=== PATIENT | female | born 1950 | race Caucasian/White ===

== ENCOUNTER → 2019-06-28 | Outpatient (CLI) | payer OTHER, MEDICARE ==
[~2019-06-28] MED LIST: ACET325 PO; ASPI81EC PO; ATOM40; CYAN100 PO; CYCL10 PO; DETROL; DIAZ5 PO; DILT180ER; DILT240 PO; Ex-Lax15 MG PO; FEXPSEER; FLUSAL2505 INH; FOLI400 PO; Flonase 0.05% N16 GM; GABA600 PO; HYDACE5; HYDACE7.5 PO; HYDMOR2 PO; IBUP800; LANS30EC; LANS30EC PO; LISI10; LISI5 PO; LORPSEER12 PO; LORPSEER24; LOVA20; LOVA40; METTREX2.5 PO; MONT10T; Milk Of Ma400 MG/5 M PO; OXYACE10 PO; OXYC10TA19 PO; POTCHL10ER PO; PROM25S PR; ROSU10TA PO; RXPROM25S PR; SPIR25 PO; TOLT4; TORSE20 PO; TRAV.004OP BOTHEYES; WARF5; WARF5 PO; WARF7.5; ZOLM5 PO; [UNRECOGNIZED DRUG - REMARK]; [UNRECOGNIZED DRUG - REMARK]
== END | disposition home or self-care (01) ==
LOC: LAB SHORT 10:31 → PLD 10:31
DX: L30.9 Dermatitis, unspecified (principal)
CPT/HCPCS: 88305; 88312; 88313

== ENCOUNTER 2021-12-10 15:33 | Emergency (ER) | payer MEDICARE ==
[~2021-12-10] VITALS: Ht 154.9 cm; Wt 71.7 kg
[2021-12-10 17:06] LABS: BASOPHILS ABSOLUTE AUTO 0.09 K/mm3 (0.00-0.23); BASOPHILS PERCENT AUTO 1 % (0-2); EOSINOPHILS ABSOLUTE AUTO 0.29 K/mm3 (0.00-0.68); EOSINOPHILS PERCENT AUTO 3 % (0-6); Hemoglobin 11.6 g/dL (11.5-16.0); IMMATURE GRAN ABSOLUTE AUTO 0.03 K/mm3 (0.00-0.10); IMMATURE GRAN PERCENT AUTO 0 % (0-1); LYMPHOCYTES ABSOLUTE AUTO 1.61 K/mm3 (0.84-5.20); LYMPHOCYTES PERCENT AUTO 17 % (21-46); MONOCYTES ABSOLUTE AUTO 0.87 K/mm3 (0.16-1.47); MONOCYTES PERCENT AUTO 9 % (4-13); Mean Corpuscular HGB 34.1 pg (26.0-34.0); Mean Corpuscular HGB Conc 32.2 g/dL (31.5-36.5); Mean Corpuscular Volume 106 fL (80-100); Mean Platelet Volume 9.7 fL (9.1-12.4); NEUTROPHILS PERCENT AUTO 70 % (41-73); Platelet Count 286 K/mm3 (150-400); RDW Coefficient Variation 15.9 % (11.7-14.2); RDW Standard Deviation 61.8 fL (35.1-46.3); White Blood Cell Count 9.49 K/mm3 (4.00-11.30)
[2021-12-10 17:36] LABS: Albumin, Blood 3.5 g/dL (3.4-5.0); Albumin/Globulin Ratio 1.2 (0.8-1.8); Bilirubin, Total 0.4 mg/dL (0.1-1.0); Bun/Creatinine Ratio 16.1 (12.0-20.0); Calcium, Blood 8.7 mg/dL (8.5-10.1); Creatinine, Blood 0.93 mg/dL (0.40-1.00); Globulin, Blood 2.8 g/dL (2.2-4.0); Potassium, Blood 4.2 mmol/L (3.5-5.5); Total Protein, Blood 6.3 g/dL (6.4-8.2)
[2021-12-10] MEDS ORDERED: Vibramycin100 MG PO (19:33)
== END 2021-12-10 19:51 | disposition home or self-care (01) ==
LOC: ER 15:33
PROVIDERS: Physician Assistant
DX: L03.221 Cellulitis of neck (principal); I10 Essential (primary) hypertension; F17.200 Nicotine dependence, unspecified, uncomplicated; G47.33 Obstructive sleep apnea (adult) (pediatric); M79.7 Fibromyalgia; Z85.3 Personal history of malignant neoplasm of breast; Z88.2 Allergy status to sulfonamides; Z91.048 Other nonmedicinal substance allergy status; Z91.041 Radiographic dye allergy status; Z88.8 Allergy status to other drugs, medicaments and biological substances; Z79.899 Other long term (current) drug therapy; Z79.01 Long term (current) use of anticoagulants
CPT/HCPCS: 36415; 70491; 80053; 85025; A9270; Q9967

== ENCOUNTER → 2021-12-20 | Outpatient (CLI) | payer MEDICARE ==
[~2021-12-20] MED LIST changes: +Vibramycin100 MG PO
== END | disposition home or self-care (01) ==
LOC: LAB SHORT 12:00
DX: L02.11 Cutaneous abscess of neck (principal)
CPT/HCPCS: 87070; 87075; 87205

== ENCOUNTER → 2022-03-23 | Outpatient (CLI) | payer MEDICARE ==
[2022-03-23 17:18] LABS: BASOPHILS ABSOLUTE AUTO 0.09 K/mm3 (0.00-0.23); BASOPHILS PERCENT AUTO 2 % (0-2); EOSINOPHILS ABSOLUTE AUTO 0.23 K/mm3 (0.00-0.68); EOSINOPHILS PERCENT AUTO 4 % (0-6); Hematocrit 31.9 % (33.0-51.0); Hemoglobin 9.6 g/dL (11.5-16.0); IMMATURE GRAN ABSOLUTE AUTO 0.02 K/mm3 (0.00-0.10); IMMATURE GRAN PERCENT AUTO 0 % (0-1); LYMPHOCYTES ABSOLUTE AUTO 1.13 K/mm3 (0.84-5.20); LYMPHOCYTES PERCENT AUTO 18 % (21-46); MONOCYTES ABSOLUTE AUTO 0.56 K/mm3 (0.16-1.47); MONOCYTES PERCENT AUTO 9 % (4-13); Mean Corpuscular HGB Conc 30.1 g/dL (31.5-36.5); Mean Corpuscular Volume 90 fL (80-100); Mean Platelet Volume 10.2 fL (9.1-12.4); NEUTROPHILS ABSOLUTE AUTO 4.13 K/mm3 (1.96-9.15); NEUTROPHILS PERCENT AUTO 67 % (41-73); NRBC ABSOLUTE 0.02 K/mm3 (0.00-0.02); NRBC Auto 0.3 /100 WBC (0.0-0.2); Platelet Count 343 K/mm3 (150-400); RDW Standard Deviation 62.2 fL (35.1-46.3); Red Blood Cell Count 3.55 M/mm3 (3.80-5.20); White Blood Cell Count 6.16 K/mm3 (4.00-11.30)
[2022-03-23 17:27] LABS: Alanine Aminotransfer (ALT/SGP 39 U/L (12-78); Albumin, Blood 3.7 g/dL (3.4-5.0); Albumin/Globulin Ratio 1.3 (0.8-1.8); Alk Phos 80 U/L (40-126); Anion Gap 8 mmol/L (6-16); Aspartate Aminotrans (AST/SGOT 18 U/L (12-37); Bilirubin, Total 0.3 mg/dL (0.1-1.0); Blood Urea Nitrogen 13 mg/dL (8-24); Bun/Creatinine Ratio 14.6 (12.0-20.0); CO2, Blood 24 mmol/L (21-32); Calcium, Blood 8.8 mg/dL (8.5-10.1); Chloride, Blood 107 mmol/L (98-108); Creatinine, Blood 0.89 mg/dL (0.40-1.00); Globulin, Blood 2.9 g/dL (2.2-4.0); Glomerular Filtration Rate >60 (60-); Glucose, Blood 114 mg/dL (70-99); Potassium, Blood 4.6 mmol/L (3.5-5.5); Sodium, Blood 139 mmol/L (136-145); Total Protein, Blood 6.6 g/dL (6.4-8.2)
[2022-03-26 12:11] LABS: A/G RATIO 1.2 (0.7-1.7); ALBUMIN 3.4 g/dL (2.9-4.4); ALPHA-1-GLOBULIN 0.3 g/dL (0.0-0.4); ALPHA-2-GLOBULIN 0.8 g/dL (0.4-1.0); GAMMA GLOBULIN 0.7 g/dL (0.4-1.8); GLOBULIN, TOTAL 2.8 g/dL (2.2-3.9); M-SPIKE Not Observed g/dL (Not Observed); PROTEIN, TOTAL, SERUM 6.2 g/dL (6.0-8.5)
== END ==
LOC: LAB 17:11 → LAB SHORT 17:11
PROVIDERS: Physician Assistant Medical
DX: M54.50 Low back pain, unspecified (principal)
CPT/HCPCS: 80053; 84165; 85025; 85651

== ENCOUNTER → 2022-05-08 | Outpatient (CLI) | payer MEDICARE ==
[2022-05-08 15:34] LABS: BASOPHILS ABSOLUTE AUTO 0.05 K/mm3 (0.00-0.23); BASOPHILS PERCENT AUTO 1 % (0-2); EOSINOPHILS PERCENT AUTO 0 % (0-6); Hematocrit 32.9 % (33.0-51.0); Hemoglobin 10.3 g/dL (11.5-16.0); IMMATURE GRAN ABSOLUTE AUTO 0.04 K/mm3 (0.00-0.10); IMMATURE GRAN PERCENT AUTO 0 % (0-1); LYMPHOCYTES ABSOLUTE AUTO 0.53 K/mm3 (0.84-5.20); LYMPHOCYTES PERCENT AUTO 6 % (21-46); MONOCYTES ABSOLUTE AUTO 0.87 K/mm3 (0.16-1.47); MONOCYTES PERCENT AUTO 9 % (4-13); Mean Corpuscular HGB 25.3 pg (26.0-34.0); Mean Corpuscular HGB Conc 31.3 g/dL (31.5-36.5); Mean Corpuscular Volume 81 fL (80-100); Mean Platelet Volume 9.9 fL (9.1-12.4); NEUTROPHILS PERCENT AUTO 84 % (41-73); Platelet Count 283 K/mm3 (150-400); RDW Coefficient Variation 19.6 % (11.7-14.2); RDW Standard Deviation 57.2 fL (35.1-46.3); Red Blood Cell Count 4.07 M/mm3 (3.80-5.20); White Blood Cell Count 9.49 K/mm3 (4.00-11.30)
== END | disposition home or self-care (01) ==
LOC: LAB SHORT 15:31
PROVIDERS: Physician Assistant
DX: R53.83 Other fatigue (principal)
CPT/HCPCS: 85025

== ENCOUNTER → 2022-05-15 | Outpatient (CLI) | payer MEDICARE ==
[2022-05-15 10:26] LABS: BASOPHILS ABSOLUTE AUTO 0.08 K/mm3 (0.00-0.23); BASOPHILS PERCENT AUTO 1 % (0-2); EOSINOPHILS ABSOLUTE AUTO 0.06 K/mm3 (0.00-0.68); EOSINOPHILS PERCENT AUTO 1 % (0-6); Hematocrit 32.5 % (33.0-51.0); IMMATURE GRAN ABSOLUTE AUTO 0.03 K/mm3 (0.00-0.10); IMMATURE GRAN PERCENT AUTO 0 % (0-1); LYMPHOCYTES ABSOLUTE AUTO 1.01 K/mm3 (0.84-5.20); LYMPHOCYTES PERCENT AUTO 11 % (21-46); MONOCYTES PERCENT AUTO 9 % (4-13); Mean Corpuscular HGB 24.9 pg (26.0-34.0); Mean Corpuscular HGB Conc 30.8 g/dL (31.5-36.5); Mean Corpuscular Volume 81 fL (80-100); Mean Platelet Volume 9.8 fL (9.1-12.4); NEUTROPHILS ABSOLUTE AUTO 7.54 K/mm3 (1.96-9.15); NEUTROPHILS PERCENT AUTO 78 % (41-73); Platelet Count 462 K/mm3 (150-400); RDW Standard Deviation 58.2 fL (35.1-46.3); Red Blood Cell Count 4.02 M/mm3 (3.80-5.20); White Blood Cell Count 9.62 K/mm3 (4.00-11.30)
[2022-05-15 10:40] LABS: Albumin, Blood 2.9 g/dL (3.4-5.0); Albumin/Globulin Ratio 0.6 (0.8-1.8); Bilirubin, Total 0.3 mg/dL (0.1-1.0); Bun/Creatinine Ratio 8.9 (12.0-20.0); Calcium, Blood 9.3 mg/dL (8.5-10.1); Creatinine, Blood 1.12 mg/dL (0.40-1.00); Globulin, Blood 4.6 g/dL (2.2-4.0); Potassium, Blood 2.6 mmol/L (3.5-5.5); Total Protein, Blood 7.5 g/dL (6.4-8.2)
== END | disposition home or self-care (01) ==
LOC: LAB 10:23 → LAB SHORT 10:23
PROVIDERS: Family Medicine
DX: R00.0 Tachycardia, unspecified (principal)
CPT/HCPCS: 80053; 85025

== ENCOUNTER 2022-05-17 19:47 | Inpatient (IN) | payer MEDICARE ==
[~2022-05-17] VITALS: Ht 154.9 cm; Wt 58.5 kg
[2022-05-17 20:37] LABS: BASOPHILS ABSOLUTE AUTO 0.05 K/mm3 (0.00-0.23); BASOPHILS PERCENT AUTO 0 % (0-2); EOSINOPHILS ABSOLUTE AUTO 0.02 K/mm3 (0.00-0.68); EOSINOPHILS PERCENT AUTO 0 % (0-6); Hematocrit 33.5 % (33.0-51.0); Hemoglobin 10.6 g/dL (11.5-16.0); IMMATURE GRAN ABSOLUTE AUTO 0.05 K/mm3 (0.00-0.10); IMMATURE GRAN PERCENT AUTO 0 % (0-1); LYMPHOCYTES ABSOLUTE AUTO 0.98 K/mm3 (0.84-5.20); LYMPHOCYTES PERCENT AUTO 7 % (21-46); MONOCYTES ABSOLUTE AUTO 1.18 K/mm3 (0.16-1.47); MONOCYTES PERCENT AUTO 8 % (4-13); Mean Corpuscular HGB 24.9 pg (26.0-34.0); Mean Corpuscular HGB Conc 31.6 g/dL (31.5-36.5); Mean Corpuscular Volume 79 fL (80-100); Mean Platelet Volume 10.1 fL (9.1-12.4); NEUTROPHILS ABSOLUTE AUTO 12.64 K/mm3 (1.96-9.15); NEUTROPHILS PERCENT AUTO 85 % (41-73); Platelet Count 563 K/mm3 (150-400); RDW Coefficient Variation 19.9 % (11.7-14.2); RDW Standard Deviation 56.1 fL (35.1-46.3); Red Blood Cell Count 4.25 M/mm3 (3.80-5.20); White Blood Cell Count 14.92 K/mm3 (4.00-11.30)
[2022-05-17 20:57] LABS: Albumin, Blood 2.8 g/dL (3.4-5.0); Albumin/Globulin Ratio 0.6 (0.8-1.8); Bilirubin, Total 0.4 mg/dL (0.1-1.0); Bun/Creatinine Ratio 10.1 (12.0-20.0); Calcium, Blood 9.3 mg/dL (8.5-10.1); Creatinine, Blood 0.7 mg/dL (0.40-1.00); Potassium, Blood 2.6 mmol/L (3.5-5.5); Total Protein, Blood 7.8 g/dL (6.4-8.2)
[2022-05-17 21:03] LABS: Prothrombin Time Results 57.9 Sec (9.7-11.5)
[2022-05-17 21:07] LABS: International Normalized Ratio 6.21
[2022-05-23] MEDS ORDERED: PERIDEX15 ML MM (10:39)
[2022-05-23] MEDS ORDERED: ERTAPENEM1 G6 IV (10:40)
[2022-05-23] MEDS ORDERED: FERGON225 MG PO (10:41)
== END 2022-05-18 07:15 | disposition short-term general hospital (02) | DRG 872 ==
LOC: ER 19:47 → ERHOLD 05-18 01:23
PROVIDERS: Physician Assistant; ADMIT Internal Medicine
DX: A41.9 Sepsis, unspecified organism (principal); K12.2 Cellulitis and abscess of mouth; I10 Essential (primary) hypertension; E87.6 Hypokalemia; Z79.899 Other long term (current) drug therapy; Z88.2 Allergy status to sulfonamides; Z88.8 Allergy status to other drugs, medicaments and biological substances; Z79.01 Long term (current) use of anticoagulants; M79.7 Fibromyalgia; G47.33 Obstructive sleep apnea (adult) (pediatric); Z86.718 Personal history of other venous thrombosis and embolism; Z90.49 Acquired absence of other specified parts of digestive tract; Z98.890 Other specified postprocedural states; Z90.710 Acquired absence of both cervix and uterus; R79.89 Other specified abnormal findings of blood chemistry; F17.200 Nicotine dependence, unspecified, uncomplicated
CPT/HCPCS: 36415; 70490; 70491; 80053; 83605; 85025; 85610; 86900; 86901; 87040; 93005; 93010; 96374; 99285-25; J0295; J1885; J2930; J3430; J3480; J7030; P9059; Q9967

== ENCOUNTER 2022-05-24 00:21 | Day surgery (SDC) | payer MEDICARE ==
[~2022-05-24 00:21] MED LIST changes: +ERTAPENEM1 G6 IV; +FERGON225 MG PO; +PERIDEX15 ML MM
== END 2022-05-24 10:15 | disposition home or self-care (01) ==
LOC: ATC 00:21
DX: M27.2 Inflammatory conditions of jaws (principal)
CPT/HCPCS: J1335

== ENCOUNTER 2022-05-25 09:21 | Day surgery (SDC) | payer MEDICARE | END 2022-05-25 10:40 | disposition home or self-care (01) | LOC: ATC 09:21 | DX: M27.2 Inflammatory conditions of jaws (principal); J44.9 Chronic obstructive pulmonary disease, unspecified; I10 Essential (primary) hypertension; G47.33 Obstructive sleep apnea (adult) (pediatric); J45.40 Moderate persistent asthma, uncomplicated; E78.5 Hyperlipidemia, unspecified; F41.9 Anxiety disorder, unspecified | CPT/HCPCS: 96365; J1335 ==

== ENCOUNTER 2022-05-27 02:20 | Day surgery (SDC) | payer MEDICARE | END 2022-05-27 09:54 | disposition home or self-care (01) | LOC: ATC 02:20 | DX: M27.2 Inflammatory conditions of jaws (principal); I10 Essential (primary) hypertension; J44.9 Chronic obstructive pulmonary disease, unspecified; J45.40 Moderate persistent asthma, uncomplicated; E11.9 Type 2 diabetes mellitus without complications | CPT/HCPCS: J1335 ==

== ENCOUNTER 2022-05-28 04:55 | Day surgery (SDC) | payer MEDICARE | END 2022-05-28 09:40 | disposition home or self-care (01) | LOC: ATC 04:55 | DX: M27.2 Inflammatory conditions of jaws (principal); I10 Essential (primary) hypertension; J44.9 Chronic obstructive pulmonary disease, unspecified; J45.40 Moderate persistent asthma, uncomplicated; E11.9 Type 2 diabetes mellitus without complications; G47.33 Obstructive sleep apnea (adult) (pediatric) | CPT/HCPCS: J1335 ==

== ENCOUNTER 2022-05-29 01:26 | Day surgery (SDC) | payer MEDICARE | END 2022-05-29 10:06 | disposition home or self-care (01) | LOC: ATC 01:26 | DX: M27.2 Inflammatory conditions of jaws (principal); I10 Essential (primary) hypertension; J44.9 Chronic obstructive pulmonary disease, unspecified; J45.40 Moderate persistent asthma, uncomplicated; G47.33 Obstructive sleep apnea (adult) (pediatric); F17.200 Nicotine dependence, unspecified, uncomplicated; E78.5 Hyperlipidemia, unspecified | CPT/HCPCS: 96365; J1335 ==

== ENCOUNTER 2022-05-30 00:13 | Day surgery (SDC) | payer MEDICARE ==
[2022-05-30 10:04] LABS: BASOPHILS ABSOLUTE AUTO 0.05 K/mm3 (0.00-0.23); BASOPHILS PERCENT AUTO 1 % (0-2); EOSINOPHILS ABSOLUTE AUTO 0.23 K/mm3 (0.00-0.68); EOSINOPHILS PERCENT AUTO 5 % (0-6); Hematocrit 29.3 % (33.0-51.0); Hemoglobin 8.8 g/dL (11.5-16.0); IMMATURE GRAN ABSOLUTE AUTO 0.02 K/mm3 (0.00-0.10); IMMATURE GRAN PERCENT AUTO 0 % (0-1); LYMPHOCYTES ABSOLUTE AUTO 0.98 K/mm3 (0.84-5.20); LYMPHOCYTES PERCENT AUTO 20 % (21-46); MONOCYTES PERCENT AUTO 10 % (4-13); Mean Corpuscular HGB 25.1 pg (26.0-34.0); Mean Corpuscular Volume 84 fL (80-100); Mean Platelet Volume 9.9 fL (9.1-12.4); NEUTROPHILS ABSOLUTE AUTO 3.04 K/mm3 (1.96-9.15); NEUTROPHILS PERCENT AUTO 63 % (41-73); Platelet Count 255 K/mm3 (150-400); RDW Coefficient Variation 20.8 % (11.7-14.2); RDW Standard Deviation 63.3 fL (35.1-46.3); White Blood Cell Count 4.82 K/mm3 (4.00-11.30)
[2022-05-30 10:20] LABS: Albumin, Blood 2.7 g/dL (3.4-5.0); Albumin/Globulin Ratio 0.8 (0.8-1.8); Bilirubin, Total 0.2 mg/dL (0.1-1.0); Bun/Creatinine Ratio 12.2 (12.0-20.0); Calcium, Blood 8.7 mg/dL (8.5-10.1); Creatinine, Blood 0.66 mg/dL (0.40-1.00); Globulin, Blood 3.5 g/dL (2.2-4.0); Potassium, Blood 4.1 mmol/L (3.5-5.5); Total Protein, Blood 6.2 g/dL (6.4-8.2)
== END 2022-05-30 10:09 | disposition home or self-care (01) ==
LOC: ATC 00:13
DX: M27.2 Inflammatory conditions of jaws (principal); G47.33 Obstructive sleep apnea (adult) (pediatric); J45.40 Moderate persistent asthma, uncomplicated; J44.9 Chronic obstructive pulmonary disease, unspecified; I10 Essential (primary) hypertension; E78.5 Hyperlipidemia, unspecified
CPT/HCPCS: 80053; 85025; 85651; 86140; 96365; J1335

== ENCOUNTER 2022-06-01 09:16 | Day surgery (SDC) | payer MEDICARE | END 2022-06-01 09:44 | disposition home or self-care (01) | LOC: ATC 09:16 | DX: M27.2 Inflammatory conditions of jaws (principal) | CPT/HCPCS: 96365; J1335 ==

== ENCOUNTER 2022-06-02 09:14 | Day surgery (SDC) | payer MEDICARE | END 2022-06-02 09:47 | disposition home or self-care (01) | LOC: ATC 09:14 | DX: E11.69 Type 2 diabetes mellitus with other specified complication (principal); M27.2 Inflammatory conditions of jaws; G47.33 Obstructive sleep apnea (adult) (pediatric); I10 Essential (primary) hypertension; J44.9 Chronic obstructive pulmonary disease, unspecified; J45.40 Moderate persistent asthma, uncomplicated; F11.20 Opioid dependence, uncomplicated; E78.5 Hyperlipidemia, unspecified | CPT/HCPCS: 96374; J1335 ==

== ENCOUNTER 2022-06-03 09:11 | Day surgery (SDC) | payer MEDICARE | END 2022-06-03 09:37 | disposition home or self-care (01) | LOC: ATC 09:11 | DX: E11.69 Type 2 diabetes mellitus with other specified complication (principal); M27.2 Inflammatory conditions of jaws; G47.33 Obstructive sleep apnea (adult) (pediatric); I10 Essential (primary) hypertension; J44.9 Chronic obstructive pulmonary disease, unspecified; J45.40 Moderate persistent asthma, uncomplicated; F11.20 Opioid dependence, uncomplicated; E78.5 Hyperlipidemia, unspecified | CPT/HCPCS: 96374; J1335 ==

== ENCOUNTER 2022-06-05 10:38 | Day surgery (SDC) | payer MEDICARE | END 2022-06-05 11:14 | disposition home or self-care (01) | LOC: ATC 10:38 | DX: M27.2 Inflammatory conditions of jaws (principal); I10 Essential (primary) hypertension; J44.9 Chronic obstructive pulmonary disease, unspecified; G47.33 Obstructive sleep apnea (adult) (pediatric); J45.40 Moderate persistent asthma, uncomplicated; E78.5 Hyperlipidemia, unspecified | CPT/HCPCS: 96374; J1335 ==

== ENCOUNTER 2022-06-06 07:55 | Day surgery (SDC) | payer MEDICARE ==
[2022-06-06 10:47] LABS: BASOPHILS ABSOLUTE AUTO 0.05 K/mm3 (0.00-0.23); BASOPHILS PERCENT AUTO 1 % (0-2); EOSINOPHILS PERCENT AUTO 5 % (0-6); Hematocrit 29.6 % (33.0-51.0); Hemoglobin 8.7 g/dL (11.5-16.0); IMMATURE GRAN PERCENT AUTO 0 % (0-1); LYMPHOCYTES ABSOLUTE AUTO 1.32 K/mm3 (0.84-5.20); LYMPHOCYTES PERCENT AUTO 33 % (21-46); MONOCYTES ABSOLUTE AUTO 0.48 K/mm3 (0.16-1.47); MONOCYTES PERCENT AUTO 12 % (4-13); Mean Corpuscular HGB 25.1 pg (26.0-34.0); Mean Corpuscular HGB Conc 29.4 g/dL (31.5-36.5); Mean Corpuscular Volume 86 fL (80-100); Mean Platelet Volume 10.8 fL (9.1-12.4); NEUTROPHILS ABSOLUTE AUTO 1.94 K/mm3 (1.96-9.15); NEUTROPHILS PERCENT AUTO 49 % (41-73); Platelet Count 214 K/mm3 (150-400); RDW Coefficient Variation 20.7 % (11.7-14.2); RDW Standard Deviation 64.7 fL (35.1-46.3); Red Blood Cell Count 3.46 M/mm3 (3.80-5.20); White Blood Cell Count 3.99 K/mm3 (4.00-11.30)
[2022-06-06 11:21] LABS: C-REACTIVE PROTEIN, EXT RANGE <0.290 mg/dL (0.000-0.300)
[2022-06-06 11:24] LABS: Alanine Aminotransfer (ALT/SGP 19 U/L (12-78); Albumin, Blood 2.7 g/dL (3.4-5.0); Albumin/Globulin Ratio 0.7 (0.8-1.8); Alk Phos 86 U/L (50-136); Anion Gap 4 mmol/L (6-16); Aspartate Aminotrans (AST/SGOT 14 U/L (12-37); Bilirubin, Total 0.3 mg/dL (0.1-1.0); Blood Urea Nitrogen 6 mg/dL (8-24); Bun/Creatinine Ratio 9.9 (12.0-20.0); CO2, Blood 26 mmol/L (21-32); Calcium, Blood 8.8 mg/dL (8.5-10.1); Chloride, Blood 113 mmol/L (98-108); Creatinine, Blood 0.61 mg/dL (0.40-1.00); Globulin, Blood 3.7 g/dL (2.2-4.0); Glomerular Filtration Rate 97 (60-); Glucose, Blood 94 mg/dL (70-99); Potassium, Blood 3.9 mmol/L (3.5-5.5); Sodium, Blood 143 mmol/L (136-145); Total Protein, Blood 6.4 g/dL (6.4-8.2)
== END 2022-06-06 09:56 | disposition home or self-care (01) ==
LOC: ATC 07:55
PROVIDERS: Internal Medicine Infectious Disease
DX: M27.2 Inflammatory conditions of jaws (principal); I10 Essential (primary) hypertension; G47.33 Obstructive sleep apnea (adult) (pediatric); M79.7 Fibromyalgia; J45.40 Moderate persistent asthma, uncomplicated; D64.9 Anemia, unspecified
CPT/HCPCS: 80053; 85025; 85651; 86140; 96374; J1335

== ENCOUNTER 2022-06-07 00:57 | Day surgery (SDC) | payer MEDICARE | END 2022-06-07 09:42 | disposition home or self-care (01) | LOC: ATC 00:57 | DX: M27.2 Inflammatory conditions of jaws (principal) | CPT/HCPCS: J1335 ==

== ENCOUNTER 2022-06-08 10:27 | Day surgery (SDC) | payer MEDICARE | END 2022-06-08 10:51 | disposition home or self-care (01) | LOC: ATC 10:27 | DX: M27.2 Inflammatory conditions of jaws (principal) | CPT/HCPCS: 96365; J1335 ==

== ENCOUNTER 2022-06-09 09:59 | Day surgery (SDC) | payer MEDICARE | END 2022-06-09 10:24 | disposition home or self-care (01) | LOC: ATC 09:59 | DX: M27.2 Inflammatory conditions of jaws (principal) | CPT/HCPCS: 96365; J1335 ==

== ENCOUNTER 2022-06-10 00:25 | Day surgery (SDC) | payer MEDICARE | END 2022-06-10 09:50 | disposition home or self-care (01) | LOC: ATC 00:25 | DX: M27.2 Inflammatory conditions of jaws (principal); I10 Essential (primary) hypertension; D64.9 Anemia, unspecified; G47.33 Obstructive sleep apnea (adult) (pediatric); J45.40 Moderate persistent asthma, uncomplicated; E11.9 Type 2 diabetes mellitus without complications; J44.9 Chronic obstructive pulmonary disease, unspecified; F11.20 Opioid dependence, uncomplicated; E78.5 Hyperlipidemia, unspecified; Z79.01 Long term (current) use of anticoagulants | CPT/HCPCS: 96374; J1335 ==

== ENCOUNTER 2022-06-11 04:48 | Day surgery (SDC) | payer MEDICARE | END 2022-06-11 09:30 | disposition home or self-care (01) | LOC: ATC 04:48 | DX: M27.2 Inflammatory conditions of jaws (principal); I10 Essential (primary) hypertension; D64.9 Anemia, unspecified; J45.40 Moderate persistent asthma, uncomplicated; E11.9 Type 2 diabetes mellitus without complications; J44.9 Chronic obstructive pulmonary disease, unspecified; F11.20 Opioid dependence, uncomplicated; E78.5 Hyperlipidemia, unspecified; Z79.01 Long term (current) use of anticoagulants | CPT/HCPCS: 96365; J1335 ==

== ENCOUNTER 2022-06-12 03:38 | Day surgery (SDC) | payer MEDICARE | END 2022-06-12 09:40 | disposition home or self-care (01) | LOC: ATC 03:38 | DX: M27.2 Inflammatory conditions of jaws (principal) | CPT/HCPCS: 96365; J1335 ==

== ENCOUNTER 2022-06-13 00:54 | Day surgery (SDC) | payer MEDICARE ==
[2022-06-13 09:49] LABS: BASOPHILS ABSOLUTE AUTO 0.04 K/mm3 (0.00-0.23); BASOPHILS PERCENT AUTO 1 % (0-2); EOSINOPHILS ABSOLUTE AUTO 0.22 K/mm3 (0.00-0.68); EOSINOPHILS PERCENT AUTO 7 % (0-6); Hematocrit 28.4 % (33.0-51.0); Hemoglobin 8.5 g/dL (11.5-16.0); IMMATURE GRAN ABSOLUTE AUTO 0.01 K/mm3 (0.00-0.10); IMMATURE GRAN PERCENT AUTO 0 % (0-1); LYMPHOCYTES ABSOLUTE AUTO 1.02 K/mm3 (0.84-5.20); LYMPHOCYTES PERCENT AUTO 34 % (21-46); MONOCYTES ABSOLUTE AUTO 0.52 K/mm3 (0.16-1.47); MONOCYTES PERCENT AUTO 18 % (4-13); Mean Corpuscular HGB 25.1 pg (26.0-34.0); Mean Corpuscular HGB Conc 29.9 g/dL (31.5-36.5); Mean Corpuscular Volume 84 fL (80-100); Mean Platelet Volume 10.2 fL (9.1-12.4); NEUTROPHILS ABSOLUTE AUTO 1.16 K/mm3 (1.96-9.15); NEUTROPHILS PERCENT AUTO 39 % (41-73); Platelet Count 202 K/mm3 (150-400); RDW Standard Deviation 61.6 fL (35.1-46.3); Red Blood Cell Count 3.39 M/mm3 (3.80-5.20); White Blood Cell Count 2.97 K/mm3 (4.00-11.30)
[2022-06-13 10:14] LABS: Alanine Aminotransfer (ALT/SGP 13 U/L (12-78); Albumin, Blood 2.6 g/dL (3.4-5.0); Albumin/Globulin Ratio 0.8 (0.8-1.8); Alk Phos 90 U/L (50-136); Anion Gap 5 mmol/L (6-16); Aspartate Aminotrans (AST/SGOT 9 U/L (12-37); Bilirubin, Total 0.2 mg/dL (0.1-1.0); Blood Urea Nitrogen 9 mg/dL (8-24); Bun/Creatinine Ratio 13.6 (12.0-20.0); C-REACTIVE PROTEIN, EXT RANGE <0.290 mg/dL (0.000-0.300); CO2, Blood 26 mmol/L (21-32); Calcium, Blood 8.7 mg/dL (8.5-10.1); Chloride, Blood 111 mmol/L (98-108); Creatinine, Blood 0.66 mg/dL (0.40-1.00); Globulin, Blood 3.4 g/dL (2.2-4.0); Glomerular Filtration Rate 95 (60-); Glucose, Blood 94 mg/dL (70-99); Potassium, Blood 4.2 mmol/L (3.5-5.5); Sodium, Blood 142 mmol/L (136-145)
== END 2022-06-13 09:37 | disposition home or self-care (01) ==
LOC: ATC 00:54
PROVIDERS: Internal Medicine Infectious Disease
DX: M27.2 Inflammatory conditions of jaws (principal)
CPT/HCPCS: 80053; 85025; 85651; 86140; J1335

== ENCOUNTER 2022-06-14 02:50 | Day surgery (SDC) | payer MEDICARE | END 2022-06-14 09:19 | disposition home or self-care (01) | LOC: ATC 02:50 | DX: M27.2 Inflammatory conditions of jaws (principal); G47.33 Obstructive sleep apnea (adult) (pediatric); J45.40 Moderate persistent asthma, uncomplicated | CPT/HCPCS: 96365; J1335 ==

== ENCOUNTER 2022-06-15 03:57 | Day surgery (SDC) | payer MEDICARE | END 2022-06-15 09:34 | disposition home or self-care (01) | LOC: ATC 03:57 | DX: M27.2 Inflammatory conditions of jaws (principal); J44.9 Chronic obstructive pulmonary disease, unspecified; J45.40 Moderate persistent asthma, uncomplicated; G47.33 Obstructive sleep apnea (adult) (pediatric); D64.9 Anemia, unspecified | CPT/HCPCS: 96365; J1335 ==

== ENCOUNTER 2022-06-16 00:52 | Day surgery (SDC) | payer MEDICARE | END 2022-06-16 09:25 | disposition home or self-care (01) | LOC: ATC 00:52 | DX: M27.2 Inflammatory conditions of jaws (principal); J45.40 Moderate persistent asthma, uncomplicated; J44.9 Chronic obstructive pulmonary disease, unspecified; E11.9 Type 2 diabetes mellitus without complications; I10 Essential (primary) hypertension; F11.20 Opioid dependence, uncomplicated; E87.6 Hypokalemia; E78.5 Hyperlipidemia, unspecified | CPT/HCPCS: 96365; J1335 ==

== ENCOUNTER 2022-06-17 07:21 | Day surgery (SDC) | payer MEDICARE | END 2022-06-17 09:36 | disposition home or self-care (01) | LOC: ATC 07:21 | DX: M27.2 Inflammatory conditions of jaws (principal); I10 Essential (primary) hypertension; J44.9 Chronic obstructive pulmonary disease, unspecified; J45.40 Moderate persistent asthma, uncomplicated | CPT/HCPCS: 96365; J1335 ==

== ENCOUNTER 2022-06-19 02:26 | Day surgery (SDC) | payer MEDICARE | END 2022-06-19 09:26 | disposition home or self-care (01) | LOC: ATC 02:26 | DX: M27.2 Inflammatory conditions of jaws (principal) | CPT/HCPCS: 96365; J1335 ==

== ENCOUNTER 2022-06-22 08:50 | Day surgery (SDC) | payer MEDICARE | END 2022-06-22 09:15 | disposition home or self-care (01) | LOC: ATC 08:50 | DX: M27.2 Inflammatory conditions of jaws (principal) | CPT/HCPCS: 96374; J1335 ==

== ENCOUNTER 2022-06-23 08:51 | Day surgery (SDC) | payer MEDICARE | END 2022-06-23 09:21 | disposition home or self-care (01) | LOC: ATC 08:51 | DX: M27.2 Inflammatory conditions of jaws (principal) | CPT/HCPCS: 96365; J1335 ==

== ENCOUNTER 2022-06-24 05:53 | Day surgery (SDC) | payer MEDICARE | END 2022-06-24 09:23 | disposition home or self-care (01) | LOC: ATC 05:53 | DX: M27.2 Inflammatory conditions of jaws (principal) | CPT/HCPCS: 96365; J1335 ==

== ENCOUNTER 2022-06-25 02:48 | Day surgery (SDC) | payer MEDICARE | END 2022-06-25 09:12 | disposition home or self-care (01) | LOC: ATC 02:48 | DX: M27.2 Inflammatory conditions of jaws (principal) | CPT/HCPCS: 96365; J1335 ==

== ENCOUNTER 2022-06-27 01:51 | Day surgery (SDC) | payer MEDICARE | END 2022-06-27 09:42 | disposition home or self-care (01) | LOC: ATC 01:51 | DX: M27.2 Inflammatory conditions of jaws (principal) | CPT/HCPCS: 96365; J1335 ==

== ENCOUNTER 2022-06-28 01:08 | Day surgery (SDC) | payer MEDICARE | END 2022-06-28 09:27 | disposition home or self-care (01) | LOC: ATC 01:08 | DX: M27.2 Inflammatory conditions of jaws (principal) | CPT/HCPCS: 96374; J1335 ==

== ENCOUNTER 2022-06-29 08:55 | Day surgery (SDC) | payer MEDICARE | END 2022-06-29 09:45 | disposition home or self-care (01) | LOC: ATC 08:55 | DX: M27.2 Inflammatory conditions of jaws (principal); E11.9 Type 2 diabetes mellitus without complications; I10 Essential (primary) hypertension; M79.7 Fibromyalgia; J44.9 Chronic obstructive pulmonary disease, unspecified; G47.33 Obstructive sleep apnea (adult) (pediatric); J45.40 Moderate persistent asthma, uncomplicated; E87.6 Hypokalemia; E78.5 Hyperlipidemia, unspecified | CPT/HCPCS: 96374; J1335 ==

== ENCOUNTER 2022-06-30 04:06 | Day surgery (SDC) | payer MEDICARE | END 2022-06-30 09:48 | disposition home or self-care (01) | LOC: ATC 04:06 | DX: M27.2 Inflammatory conditions of jaws (principal); I10 Essential (primary) hypertension; J44.9 Chronic obstructive pulmonary disease, unspecified; M79.7 Fibromyalgia; G47.33 Obstructive sleep apnea (adult) (pediatric); J45.40 Moderate persistent asthma, uncomplicated; F11.90 Opioid use, unspecified, uncomplicated; E78.5 Hyperlipidemia, unspecified | CPT/HCPCS: 96365; J1335 ==

== ENCOUNTER 2022-07-01 01:47 | Day surgery (SDC) | payer MEDICARE | END 2022-07-01 09:58 | disposition home or self-care (01) | LOC: ATC 01:47 | DX: M27.2 Inflammatory conditions of jaws (principal); I10 Essential (primary) hypertension; J44.9 Chronic obstructive pulmonary disease, unspecified | CPT/HCPCS: 96365; J1335 ==

== ENCOUNTER 2022-11-07 10:34 | Inpatient (IN) | payer MEDICARE ==
[~2022-11-07] VITALS: Ht 154.9 cm; Wt 62.7 kg
[~2022-11-07 10:34] MED LIST changes: +FOLIC ACID0.4 MG PO
[2022-11-07 11:26] LABS: BASOPHILS ABSOLUTE AUTO 0.05 K/mm3 (0.00-0.23); BASOPHILS PERCENT AUTO 1 % (0-2); EOSINOPHILS ABSOLUTE AUTO 0.04 K/mm3 (0.00-0.68); EOSINOPHILS PERCENT AUTO 0 % (0-6); Hematocrit 19.9 % (33.0-51.0); IMMATURE GRAN ABSOLUTE AUTO 0.08 K/mm3 (0.00-0.10); IMMATURE GRAN PERCENT AUTO 1 % (0-1); LYMPHOCYTES ABSOLUTE AUTO 0.62 K/mm3 (0.84-5.20); LYMPHOCYTES PERCENT AUTO 7 % (21-46); MONOCYTES ABSOLUTE AUTO 0.71 K/mm3 (0.16-1.47); MONOCYTES PERCENT AUTO 8 % (4-13); Mean Corpuscular HGB 23.9 pg (26.0-34.0); Mean Corpuscular HGB Conc 29.6 g/dL (31.5-36.5); Mean Corpuscular Volume 81 fL (80-100); Mean Platelet Volume 10.3 fL (9.1-12.4); NEUTROPHILS PERCENT AUTO 84 % (41-73); NRBC ABSOLUTE 0.19 K/mm3 (0.00-0.02); Platelet Count 473 K/mm3 (150-400); RDW Coefficient Variation 21.1 % (11.7-14.2); RDW Standard Deviation 61.4 fL (35.1-46.3); Red Blood Cell Count 2.47 M/mm3 (3.80-5.20)
[2022-11-07 11:37] LABS: Hemoglobin 5.9 g/dL (11.5-16.0)
[2022-11-07 12:26] LABS: Influenza A, PCR NEGATIVE (NEGATIVE); Influenza B, PCR NEGATIVE (NEGATIVE); Resp Syncytial Virus, PCR NEGATIVE (NEGATIVE); SARS-Cov-2 (COVID-19) PCR, MMC NEGATIVE (NEGATIVE)
[2022-11-07 13:09] LABS: Albumin, Blood 2.8 g/dL (3.4-5.0); Albumin/Globulin Ratio 0.8 (0.8-1.8); Bilirubin, Total 0.4 mg/dL (0.1-1.0); Calcium, Blood 8.5 mg/dL (8.5-10.1); Globulin, Blood 3.7 g/dL (2.2-4.0); Potassium, Blood 4.1 mmol/L (3.5-5.5); Total Protein, Blood 6.5 g/dL (6.4-8.2)
[2022-11-07] MEDS ORDERED: Norco 5-325 Ta1 EACH PO (15:11)
--- NOTE | 2022-11-07 16:46 | NUR ---
ADMIT TO MEDICAL FLOOR: PT ARRIVED TO MEDICAL FLOOR AT 1615 [facility]IA [facility] BED. BLOOD PRODUCTS WERE FINISHING PT ARRIVED. WILL FLUSH IV ONCE IT IS DONE. TELE IN PLACE. PT CURRENTLY HAS SON IN ROOM. PT HAS CHRONIC BACK PAIN THAT SHE STATES IS MEDICATED WITH HYDROCODONE AND GABAPENTIN. I GAVE PT TYLENOL FOR BACK UNTIL THE DOCTOR CAN ASSESS HER. PT DENIES ANY NEEDS AT THIS TIME.
--- NOTE | 2022-11-07 17:42 | NUR ---
SHIFT SUMMARY: PT ARRIVED TO MEDICAL FLOOR COLD, PALE, AND IN CHRONIC PAIN WITH HER BACK. PT'S SON HAS BEEN WITH HER AND HAS HELPED TO ANSWER SOME QUESTIONS. PT GOT A DOSE OF 650 MG TYLENOL UPON ARRIVAL WHICH "HELPED A LITTLE." GOT AN ORDER TO PUT HER BACK ON HER HOME PAIN MEDICATION OF 10-325 NORCO. H&H WILL BE DRAWN AT 1900. TELE IN PLACE. IV PATENT AND FLUSHING. NO COMPLAINTS AT THIS TIME. CALL LIGHT IN REACH. BED IN LOWEST POSITION. WILL CONTINUE TO MONITOR.
[2022-11-07 19:06] LABS: Hematocrit 23.4 % (33.0-51.0); Hemoglobin 7.4 g/dL (11.5-16.0)
[2022-11-07 19:29] LABS: International Normalized Ratio 1.08; Prothrombin Time Results 11.3 Sec (9.7-11.5)
[2022-11-08 01:12] LABS: BASOPHILS ABSOLUTE AUTO 0.06 K/mm3 (0.00-0.23); BASOPHILS PERCENT AUTO 1 % (0-2); EOSINOPHILS ABSOLUTE AUTO 0.17 K/mm3 (0.00-0.68); EOSINOPHILS PERCENT AUTO 2 % (0-6); Hematocrit 23.9 % (33.0-51.0); Hemoglobin 7.5 g/dL (11.5-16.0); IMMATURE GRAN ABSOLUTE AUTO 0.08 K/mm3 (0.00-0.10); IMMATURE GRAN PERCENT AUTO 1 % (0-1); LYMPHOCYTES ABSOLUTE AUTO 0.85 K/mm3 (0.84-5.20); LYMPHOCYTES PERCENT AUTO 10 % (21-46); MONOCYTES ABSOLUTE AUTO 0.83 K/mm3 (0.16-1.47); MONOCYTES PERCENT AUTO 9 % (4-13); Mean Corpuscular HGB Conc 31.4 g/dL (31.5-36.5); Mean Corpuscular Volume 80 fL (80-100); Mean Platelet Volume 10.2 fL (9.1-12.4); NEUTROPHILS PERCENT AUTO 77 % (41-73); NRBC ABSOLUTE 0.14 K/mm3 (0.00-0.02); NRBC Auto 1.6 /100 WBC (0.0-0.2); Platelet Count 437 K/mm3 (150-400); RDW Coefficient Variation 19.1 % (11.7-14.2); RDW Standard Deviation 51.2 fL (35.1-46.3); White Blood Cell Count 8.79 K/mm3 (4.00-11.30)
[2022-11-08 01:39] LABS: Albumin, Blood 2.5 g/dL (3.4-5.0); Albumin/Globulin Ratio 0.7 (0.8-1.8); Bilirubin, Total 0.4 mg/dL (0.1-1.0); Bun/Creatinine Ratio 14.2 (12.0-20.0); Calcium, Blood 8.1 mg/dL (8.5-10.1); Creatinine, Blood 0.7 mg/dL (0.40-1.00); Globulin, Blood 3.8 g/dL (2.2-4.0); Potassium, Blood 3.6 mmol/L (3.5-5.5); Total Protein, Blood 6.3 g/dL (6.4-8.2)
--- NOTE | 2022-11-08 04:25 | NUR ---
SHIFT SUMMARY: PT IS ALERT AND ORIENTED. PT IS CALM AND COOPERATIVE WITH CARE. PT CALLS APPROPRIATELY. PT IS A STANDBY ASSIST WITH FWW. PT SLEPT MUCH OF THE NIGHT WHEN NOT DISTURBED. PT DENIES PAIN, NAUSEA, VOMITING, AND SOB. NO ACUTE CHANGES OR COMPLICATIONS OVERNIGHT. BED IN LOW POSITION, CALL LIGHT WITHIN REACH. WILL REPORT TO DAY NURSE.
[2022-11-08 07:19] LABS: Hematocrit 22.9 % (33.0-51.0); Hemoglobin 7.2 g/dL (11.5-16.0)
[2022-11-08 13:25] LABS: Hematocrit 22.4 % (33.0-51.0); Hemoglobin 7.2 g/dL (11.5-16.0)
--- NOTE | 2022-11-08 17:26 | NUR ---
SHIFT SUMMARY VSS. PT ON ROOM AIR. IV TO PT'S LEFT AC. TELE MONITORING PT AT NORMAL SINUS IN THE 80'S. PT IS STANDBY ASSIST TO BATHROOM. TAKES MEDS WHOLE WITH WATER. CHRONIC BACK PAIN. GI CONSULT WITH DR. HERNÁNDEZ, HE PLANS FOR AN EGD TOMORROW, IF POSSIBLE. PT IS TO BE NPO AFTER BREAKFAST ON SAT 12/10. PT LIVES WITH BROTHER, GENOVEVA, WHO IS HER PRIMARY CAREGIVER. GENOVEVA VISITED PT'S BEDSIDE. PT'S DAUGHTER KEY CALLED FOR A STATUS UPDATE AND SPOKE TO RN. PT C/O MIGRAINE AND RECEIVED ZIOMIG PRN. BED IN LOWEST POSITION, CALL LIGHT WITHIN REACH. RN WILL CONTINUE TO MONITOR.
--- NOTE | 2022-11-09 07:27 | NUR ---
A/OX2-3; CONFUSED AT TIMES, CALM AND COOPERATIVE. TELE: ST @ 105. CLEAR LIQUID BREAKFAST THEN NPO AFTER FOR EGD TODAY. NO ACUTE CHANGES OVERNIGHT CALL LIGHT IN REACH; ENCOURAGED TO MAKE NEEDS KNOWN. BED ALARM SET.
[2022-11-09 12:36] LABS: BASOPHILS ABSOLUTE AUTO 0.04 K/mm3 (0.00-0.23); BASOPHILS PERCENT AUTO 1 % (0-2); EOSINOPHILS ABSOLUTE AUTO 0.18 K/mm3 (0.00-0.68); EOSINOPHILS PERCENT AUTO 3 % (0-6); Hematocrit 22.5 % (33.0-51.0); IMMATURE GRAN ABSOLUTE AUTO 0.07 K/mm3 (0.00-0.10); IMMATURE GRAN PERCENT AUTO 1 % (0-1); LYMPHOCYTES ABSOLUTE AUTO 0.87 K/mm3 (0.84-5.20); LYMPHOCYTES PERCENT AUTO 17 % (21-46); MONOCYTES ABSOLUTE AUTO 0.67 K/mm3 (0.16-1.47); MONOCYTES PERCENT AUTO 13 % (4-13); Mean Corpuscular HGB Conc 31.1 g/dL (31.5-36.5); Mean Corpuscular Volume 80 fL (80-100); Mean Platelet Volume 9.6 fL (9.1-12.4); NEUTROPHILS ABSOLUTE AUTO 3.45 K/mm3 (1.96-9.15); NEUTROPHILS PERCENT AUTO 65 % (41-73); NRBC ABSOLUTE 0.06 K/mm3 (0.00-0.02); NRBC Auto 1.1 /100 WBC (0.0-0.2); Platelet Count 381 K/mm3 (150-400); RDW Coefficient Variation 19.7 % (11.7-14.2); RDW Standard Deviation 53.3 fL (35.1-46.3); White Blood Cell Count 5.28 K/mm3 (4.00-11.30)
[2022-11-09 12:57] LABS: Albumin, Blood 2.3 g/dL (3.4-5.0); Albumin/Globulin Ratio 0.7 (0.8-1.8); Bilirubin, Total 0.2 mg/dL (0.1-1.0); Bun/Creatinine Ratio 9.9 (12.0-20.0); Creatinine, Blood 0.61 mg/dL (0.40-1.00); Globulin, Blood 3.4 g/dL (2.2-4.0); Potassium, Blood 3.6 mmol/L (3.5-5.5); Total Protein, Blood 5.7 g/dL (6.4-8.2)
--- NOTE | 2022-11-09 15:17 | NUR ---
11/09/22 1517 Luci Hamlin MONITOR INTACT WITH CONTINUOUS PULSE OXIMETRY AND INTERMITTENT BP.
--- NOTE | 2022-11-09 16:06 | NUR ---
PT HAD AN ELEVEN BEAT RUN OF VTACH, REPORTED BY TELEMETRY. PT WAS ASYMPTOMATIC WHEN ASSESSED BY RN. PT WAS SITTING IN BED, DENIED CHEST PAIN OR PRESSURE. PT C/O PAIN TO HER STOMACH AND LOWER BACK. RN CONTINUED TO MONITOR VIA TELEMETRY.
--- NOTE | 2022-11-09 18:10 | NUR ---
SHIFT SUMMARY PT HAD A EGD COMPLETED TODAY, WHICH WAS REMARKABLE FOR TWO ULCERS. DR. GUTIÉRREZ ADVISED PT TO AVOID NSAIDS IN THE FUTURE, AND TO TELL OTHER SPECIALISTS THAT SHE HAS ULCERS. PT EXHIBITS UNDERSTANDING OF THIS. UPON RETURN TO THE FLOOR, PT WAS VERY BLOATED AND FELT "GASSY." AFTER VOIDING, AND USING A HOT K-PAD ON HER STOMACH, HER BLOATING WAS RELIEVED. SHE IS ABLE TO TOLERATE SIPPING CLEAR LIQUIDS. CURRENTLY SIPPING A CLEAR ENSURE. SHE LOST IV ACCESS, AND TWO RN'S WERE UNABLE TO START ANOTHER IV. BED IN LOWEST POSITION. PT A&O X2, ROOM AIR. INDEPENDENT AND CONTINENT IN ROOM. USES CALL LIGHT APPROPRIATELY.
[2022-11-10 11:04] LABS: BASOPHILS ABSOLUTE AUTO 0.04 K/mm3 (0.00-0.23); BASOPHILS PERCENT AUTO 1 % (0-2); EOSINOPHILS PERCENT AUTO 3 % (0-6); Hematocrit 22.4 % (33.0-51.0); Hemoglobin 6.8 g/dL (11.5-16.0); IMMATURE GRAN ABSOLUTE AUTO 0.04 K/mm3 (0.00-0.10); IMMATURE GRAN PERCENT AUTO 1 % (0-1); LYMPHOCYTES ABSOLUTE AUTO 0.89 K/mm3 (0.84-5.20); LYMPHOCYTES PERCENT AUTO 14 % (21-46); MONOCYTES ABSOLUTE AUTO 0.75 K/mm3 (0.16-1.47); MONOCYTES PERCENT AUTO 12 % (4-13); Mean Corpuscular HGB 24.9 pg (26.0-34.0); Mean Corpuscular HGB Conc 30.4 g/dL (31.5-36.5); Mean Corpuscular Volume 82 fL (80-100); Mean Platelet Volume 10.1 fL (9.1-12.4); NEUTROPHILS ABSOLUTE AUTO 4.25 K/mm3 (1.96-9.15); NEUTROPHILS PERCENT AUTO 69 % (41-73); NRBC ABSOLUTE 0.04 K/mm3 (0.00-0.02); NRBC Auto 0.6 /100 WBC (0.0-0.2); Platelet Count 368 K/mm3 (150-400); RDW Coefficient Variation 20.3 % (11.7-14.2); Red Blood Cell Count 2.73 M/mm3 (3.80-5.20); White Blood Cell Count 6.17 K/mm3 (4.00-11.30)
--- NOTE | 2022-11-10 11:15 | NUR ---
RN CALLED DR. VICENTE, AND REPORTED THAT PT'S HGB WAS 6.8.
[2022-11-10 11:28] LABS: Albumin, Blood 2.3 g/dL (3.4-5.0); Albumin/Globulin Ratio 0.7 (0.8-1.8); Bilirubin, Total 0.2 mg/dL (0.1-1.0); Bun/Creatinine Ratio 6.7 (12.0-20.0); Calcium, Blood 8.1 mg/dL (8.5-10.1); Creatinine, Blood 0.6 mg/dL (0.40-1.00); Globulin, Blood 3.3 g/dL (2.2-4.0); Potassium, Blood 3.5 mmol/L (3.5-5.5); Total Protein, Blood 5.6 g/dL (6.4-8.2)
[2022-11-10 13:41] LABS: Percent Saturation 12.1 % (15.0-50.0)
--- NOTE | 2022-11-10 19:30 | NUR ---
PT'S HGB WAS 6.8, DR. VICENTE ORDERED TWO UNITS OF PBRC'S, PT RECEIVED ONE UNIT ON DAY SHIFT. PT'S BLOOD PRESSURE WAS ELEVATED - GIVEN A ONE TIME DOSE OF IV LASIX AFTER FIRST UNIT OF BLOOD. PRN LABETOLOL ADDED TO EMAR. A AND O X 3, LIVES WITH BROTHER WHO IS HER PRIMARY CAREGIVER. ROOM AIR. IV ACCESS TO RIGHT FOREARM. INDEPENDENT IN ROOM. NO BM X A FEW DAYS. ABLE TO USE CALL LIGHT APPROPRIATELY.
--- NOTE | 2022-11-11 05:52 | NUR ---
Rn summary: Patient alert and oriented. Pt is up independantly to the BR without difficulty. Patient needed new IV placed for 2nd unit PRBC. Pt given 2nd PRBC as ordered. Pt tolerated well. Pt skin remains pale. Lung sounds with an unusual rub/noise in the left bases that improved over 6 hours, pt had receied lasix between units with good urine output. Pt has chonic back pain and rested only fair. Medicated x3 with [place] 1 tab. Pain goes down from 7-8 to a 5 which is tolerable per pt. Pt states she has not had a BM since the 15 of October, that she has only be taking fluids, and not really eating. Unsure if this is accurate. Pt medicated with 10mg labetalol for BP in the 170's. Will continue to monitor. Call light in reach.
--- NOTE | 2022-11-11 07:15 | NUR ---
PT'S SON, KAMERON MIRELES, IS AT BEDSIDE. STATUS UPDATE GIVEN REGARDING PRBC'S, HGB, NEED FOR OMEPRAZOLE PO RX UPON DISCHARGE, REVIEWED NO NSAIDS R/T TWO GASTRIC AND DUODENAL ULCERS. SON VERBALIZES UNDERSTANDING AND HAS KNOWLEDGE OF MEDICINE.
--- NOTE | 2022-11-11 07:33 | NUR ---
PHONE CALL TO PHYSICIAN - REQUESTING AN ORDER FOR h AND H TO RE-CHECK HEMOGLOBIN AFTER THE TWO UNITS OF PRBC'S.
[2022-11-11 08:24] LABS: Hemoglobin 9.6 g/dL (11.5-16.0)
--- NOTE | 2022-11-11 13:14 | NUR ---
PT'S HGB IS 9.6. RN PLACED CALL TO DR. VICENTE TO DISCUSS DISCHARGE PLANS. DR. VICENTE WOULD LIKE TO EVALUATE FOR FURTHER BLOOD LOSS, BY CHECKING BLOOD LEVELS AGAIN PRIOR TO DISCHARGE.
--- NOTE | 2022-11-11 13:43 | NUR ---
RN PLACED CALL TO DR. MARROQUIN FOR UPDATE ON DISCHARGE PLAN: DR. VICENTE STATES HE WILL RECHECK HER HGB LATER THIS AFTERNOON AND THE EARLIEST DISCHARGE WILL BE TOMORROW MORNING. RN THEN CALLED PT'S BROTHER WITH THE UPDATE, GENOVEVA KENNEDY. GENOVEVA STATES THAT WE WILL CALL PT'S SON, JHONATHAN MIRELES, WITH AN UPDATE.
[2022-11-11 16:44] LABS: Hematocrit 29.7 % (33.0-51.0); Hemoglobin 9.8 g/dL (11.5-16.0)
--- NOTE | 2022-11-11 18:30 | NUR ---
CELI'S HGB AND REPEAT HGB WERE EACH 9.8 TODAY. AFTER LABS TOMORROW AM, PT MAY DISCHARGE HOME IF HGB IS GREATER THAN 7. SHE C/O CHRONIC BACK PAIN. IV TO RIGHT AC PATENT AND FLUSHING. TODAY, GIVEN PRUNE JUICE, APPLE JUICE, AND STOOL SOFTENERS TO ENCOURAGE BOWEL MOVEMENT. PT STATES SHE FEELS BLOATED. PT'S SON JHONATHAN VISITED. NO BP PRN MEDS GIVEN THIS SHIFT. ROOM AIR.
--- NOTE | 2022-11-12 06:39 | NUR ---
SUMMARY NO NEW ISSUES NOTED PT IS EAGER TO GO HOME. PT HAS BEEN RESTING WATCHING TV THROUGHOUT SHIFT. PT BACK PAIN MANAGED WELL PER EMAR. CALL LIGHT IN REACH.
[2022-11-12 06:51] LABS: Hematocrit 29.6 % (33.0-51.0); Hemoglobin 9.5 g/dL (11.5-16.0)
[2022-11-12] MEDS ORDERED: PANT40 PO (14:56)
--- NOTE | 2022-11-12 15:57 | NUR ---
DISCHARGE SUMMARY: PATIENT READY FOR DISCHARGE. DISCHARGE RX FAXED TO [facility] PER PATIENT REQUEST. PATIENT DISCHARGE EDUCATION AND INSTRUCTIONS PROVIDED. ALL QUESTIONS AND CONCERNS ADDRESSED. PATIENT DISCHARGED IN WHEELCHAIR WITH RN. PATIENT STABLE AT TIME OF DISCHARGE. PATIENT REPORTED CHRONIC PAIN DURING THE SHIFT. PAIN CONTROLLED WITH REPOSITIONING AND PRN MEDICATION. PATIENT DENIED DIZZINESS OR LIGHTHEADEDNESS THROUGHOUT THE SHIFT. PATIENT STABLE ON FEET IN ROOM. PATIENT ABLE TO HAVE TWO LARGE BOWEL MOVEMENTS. PATIENT DENIED ANY BLOOD (SHEILA OR DARK) IN THE STOOL. PATIENT DENIED NAUSEA OR GI UPSET THROUGHOUT THE SHIFT.
== END 2022-11-12 15:35 | disposition home or self-care (01) | DRG 812 ==
LOC: ER 10:34 → MEDS 10:35 → ERHOLD 10:35 → ER 10:35 → ERHOLD 10:35 → MEDS 10:35
PROVIDERS: Emergency Medicine; Internal Medicine; Student in an Organized Health Care Education/Training Program; ADMIT Family Medicine
PROC: 30233N1 Transfusion of Nonautologous Red Blood Cells into Peripheral Vein, Percutaneous Approach (ICD-10-PCS; 2022-11-07)
PROC: 0DJ08ZZ Inspection of Upper Intestinal Tract, Via Natural or Artificial Opening Endoscopic (ICD-10-PCS; principal; 2022-11-09 16:00)
DX: D62 Acute posthemorrhagic anemia (principal); K26.9 Duodenal ulcer, unspecified as acute or chronic, without hemorrhage or perforation; K25.9 Gastric ulcer, unspecified as acute or chronic, without hemorrhage or perforation; K20.90 Esophagitis, unspecified without bleeding; M54.50 Low back pain, unspecified; M79.7 Fibromyalgia; G47.33 Obstructive sleep apnea (adult) (pediatric); R55 Syncope and collapse; F17.210 Nicotine dependence, cigarettes, uncomplicated; J44.9 Chronic obstructive pulmonary disease, unspecified; I12.9 Hypertensive chronic kidney disease with stage 1 through stage 4 chronic kidney disease, or unspecified chronic kidney disease; N18.30 Chronic kidney disease, stage 3 unspecified; I25.10 Atherosclerotic heart disease of native coronary artery without angina pectoris; D63.1 Anemia in chronic kidney disease; G89.4 Chronic pain syndrome; E66.9 Obesity, unspecified; G25.0 Essential tremor; K21.9 Gastro-esophageal reflux disease without esophagitis; G47.00 Insomnia, unspecified; D50.9 Iron deficiency anemia, unspecified; K58.9 Irritable bowel syndrome, unspecified; G43.909 Migraine, unspecified, not intractable, without status migrainosus; M47.896 Other spondylosis, lumbar region; E78.2 Mixed hyperlipidemia; I80.3 Phlebitis and thrombophlebitis of lower extremities, unspecified; L40.9 Psoriasis, unspecified; G25.81 Restless legs syndrome; E55.9 Vitamin D deficiency, unspecified; K22.4 Dyskinesia of esophagus; Z20.822 Contact with and (suspected) exposure to COVID-19; Z86.718 Personal history of other venous thrombosis and embolism; Z88.5 Allergy status to narcotic agent; Z79.899 Other long term (current) drug therapy; Z79.01 Long term (current) use of anticoagulants; Z79.52 Long term (current) use of systemic steroids; Z79.891 Long term (current) use of opiate analgesic; Z90.49 Acquired absence of other specified parts of digestive tract; Z90.710 Acquired absence of both cervix and uterus; Z98.890 Other specified postprocedural states; Z68.24 Body mass index [BMI] 24.0-24.9, adult; Z98.51 Tubal ligation status; Z85.3 Personal history of malignant neoplasm of breast; Z98.49 Cataract extraction status, unspecified eye
CPT/HCPCS: 0241U; 36415; 36430; 71045; 80053; 82272; 82728; 82947; 83540; 83550; 85014; 85018; 85025; 85610; 86850; 86900; 86901; 86923; 93005; 93010; 94640; 94664; 94760; 96374; 96376; 99285-25; A9270; C9113; G0378; J1940; J2704; J7030; J7120; P9016

== ENCOUNTER 2022-12-12 21:59 | Emergency (ER) | payer MEDICARE ==
[~2022-12-12] VITALS: Ht 152.4 cm; Wt 58.0 kg
[~2022-12-12 21:59] MED LIST changes: +Norco 5-325 Ta1 EACH PO; +PANT40 PO
[2022-12-12 22:49] LABS: BASOPHILS ABSOLUTE AUTO 0.08 K/mm3 (0.00-0.23); BASOPHILS PERCENT AUTO 1 % (0-2); EOSINOPHILS ABSOLUTE AUTO 0.42 K/mm3 (0.00-0.68); EOSINOPHILS PERCENT AUTO 7 % (0-6); Hematocrit 41.5 % (33.0-51.0); Hemoglobin 13.5 g/dL (11.5-16.0); IMMATURE GRAN ABSOLUTE AUTO 0.01 K/mm3 (0.00-0.10); IMMATURE GRAN PERCENT AUTO 0 % (0-1); LYMPHOCYTES PERCENT AUTO 23 % (21-46); MONOCYTES ABSOLUTE AUTO 0.63 K/mm3 (0.16-1.47); MONOCYTES PERCENT AUTO 11 % (4-13); Mean Corpuscular HGB 28.7 pg (26.0-34.0); Mean Corpuscular HGB Conc 32.5 g/dL (31.5-36.5); Mean Corpuscular Volume 88 fL (80-100); Mean Platelet Volume 9.9 fL (9.1-12.4); NEUTROPHILS ABSOLUTE AUTO 3.22 K/mm3 (1.96-9.15); NEUTROPHILS PERCENT AUTO 57 % (41-73); Platelet Count 213 K/mm3 (150-400); RDW Coefficient Variation 22.5 % (11.7-14.2); RDW Standard Deviation 70.9 fL (35.1-46.3); Red Blood Cell Count 4.71 M/mm3 (3.80-5.20); White Blood Cell Count 5.66 K/mm3 (4.00-11.30)
[2022-12-12 23:09] LABS: Albumin, Blood 3.9 g/dL (3.4-5.0); Albumin/Globulin Ratio 0.9 (0.8-1.8); Bilirubin, Total 0.2 mg/dL (0.1-1.0); Bun/Creatinine Ratio 13.3 (12.0-20.0); Calcium, Blood 9.6 mg/dL (8.5-10.1); Creatinine, Blood 1.13 mg/dL (0.40-1.00); Globulin, Blood 4.2 g/dL (2.2-4.0); Potassium, Blood 3.7 mmol/L (3.5-5.5); Total Protein, Blood 8.1 g/dL (6.4-8.2)
[2022-12-13 00:25] LABS: International Normalized Ratio 2.3; Prothrombin Time Results 22.9 Sec (9.7-11.5)
== END 2022-12-13 04:49 | disposition home or self-care (01) ==
LOC: ER 21:59
PROVIDERS: Student in an Organized Health Care Education/Training Program
DX: K92.1 Melena (principal); T45.4X5A Adverse effect of iron and its compounds, initial encounter; I10 Essential (primary) hypertension; F17.210 Nicotine dependence, cigarettes, uncomplicated; Z88.5 Allergy status to narcotic agent; Z79.01 Long term (current) use of anticoagulants; Z79.899 Other long term (current) drug therapy
CPT/HCPCS: 80053; 85025; 85610; 93005; 93010

== ENCOUNTER 2024-07-30 06:33 | Day surgery (SDC) | payer MEDICARE ==
[~2024-07-30] VITALS: Ht 154.9 cm; Wt 55.3 kg
[2024-07-30] VITALS (7 sets, daily range): BP systolic 143–154; BP diastolic 70–82
[2024-07-30] MEDS ORDERED: DONEPEZIL HCL5 M2 (07:36)
[2024-07-30] MEDS ORDERED: ALBU8HFA2 INH (07:36)
[2024-07-30] MEDS ORDERED: ATOR80 PO (07:36)
[2024-07-30] MEDS ORDERED: ALBU2.5V5 INH (07:37)
[2024-07-30] MEDS ORDERED: CARBIDOPA-LEVO1 EA18 PO (07:37)
[2024-07-30] MEDS ORDERED: PREG150 PO (07:38)
[2024-07-30] MEDS ORDERED: TOLT4 PO (07:39)
[2024-07-30] MEDS ORDERED: NS 500 ML IV ONE (08:05)
[2024-07-30] MEDS ORDERED: Heparin Sodium 1000 Units/ML 10ML MDV ONE ×2 (08:06→09:25)
[2024-07-30] MEDS ORDERED: Nitroglycerin 2 MG/20 ML BTL ONE (08:06)
[2024-07-30] MEDS ORDERED: NS 1,000 ML IV ONE ×2 (08:06→08:15)
[2024-07-30] MEDS ORDERED: Midazolam HCl 1MG / ML 2ML Vial ONE ×2 (08:14→09:22)
[2024-07-30] MEDS ORDERED: FentaNYL Citrate 50 MCG/ML 2 ML Injection ONE ×2 (08:14→09:22)
--- NOTE | 2024-07-30 10:05 | NUR ---
PATIENT ARRIVED BACK TO RECOVERY ROOM CONVERSING APPROPRIATELY. R GROIN SITE WITH ANGIO SEAL C/D/I SOFT/NONTENDER, NO EVIDENCE OF BLEEDING. VSS ON RA. PATIENT COMPLAINING OF CHRONIC LOWER BACK PAIN. PATIENT READJUSTED IN BED. WILL CONTINUE TO MONITOR. HOB FLAT.
--- NOTE | 2024-07-30 10:44 | NUR ---
groin site soft and non-tender per pt. no bleeding noted.
--- NOTE | 2024-07-30 11:00 | NUR ---
PATIENT SITTING UP IN BED RESTING COMFORTABLY. RIGHT GROIN SITE C/D/I SOFT/NONTENDER, NO EVIDENCE OF BLEEDING. VSS ON RA.
--- NOTE | 2024-07-30 11:18 | NUR ---
pt sitting up in bed. groin site soft and non-tender per pt. no bleeding noted. pt refused anything to eat or drink.
--- NOTE | 2024-07-30 11:48 | NUR ---
DISCHARGE INSTRUCTIONS REVIEWED WITH PATIENT. R GROIN SITE C/D/I SOFT/NONTENDER, NO EVIDENCE OF BLEEDING. VSS ON RA
--- NOTE | 2024-07-30 12:14 | NUR ---
PATIENT AMBULATING AND GETTING DRESSED WITHOUT DIFFICULTY. FOOD AND WATER OFFERED SEVERAL TIMES. R GROIN SITE C/D/I SOFT/NONTENDER NO EVIDENCE OF BLEEDING. VSS ON RA. PATIENT CONVERSING APPROPRIATELY.
--- NOTE | 2024-07-30 12:22 | NUR ---
PATIENT DISCHARGED HOME AT THIS TIME. R GROIN SITE C/D/I SOFT/NONTENDER, NO EVIDENCE OF BLEEDING. ALL PATIENT BELONGINGS AND PAPERWORK LEFT WITH PATIENT. PIV REMOVED WITHOUT DIFFICULTY, CATHETER INTACT. PATIENT WHEELED TO HOSPITAL ENTRANCE AND PATIENTS BROTHER ABLE TO PROVIDE TRANSPORTATION HOME
[2024-08-12] MEDS ORDERED: WARF6 PO (16:29)
[2024-08-12] MEDS ORDERED: TOLT4 PO (16:29)
[2024-08-12] MEDS ORDERED: ZOLM5 PO (16:30)
== END 2024-07-30 13:04 | disposition home or self-care (01) ==
LOC: MHTC 06:33
DX: I73.9 Peripheral vascular disease, unspecified (principal); I10 Essential (primary) hypertension; J44.9 Chronic obstructive pulmonary disease, unspecified; E78.5 Hyperlipidemia, unspecified; F17.210 Nicotine dependence, cigarettes, uncomplicated; Z88.2 Allergy status to sulfonamides; Z88.5 Allergy status to narcotic agent; Z79.01 Long term (current) use of anticoagulants; Z79.899 Other long term (current) drug therapy
CPT/HCPCS: 37228; 75625; 75716; 75774; 76937; 99152; 99153; C1725; C1760; C1769; C1887; C1894; C9764; J1644; J2250; J3010; J7030; J7050; Q9967

== ENCOUNTER 2024-08-13 06:30 | Day surgery (SDC) | payer MEDICARE ==
[~2024-08-13] VITALS: Ht 154.9 cm; Wt 55.3 kg
[2024-08-13] VITALS (13 sets, daily range): BP systolic 144–183; BP diastolic 62–86
[~2024-08-13 06:30] MED LIST changes: +ALBU2.5V5 INH; +ALBU8HFA2 INH; +ATOR80 PO; +CARBIDOPA-LEVO1 EA18 PO; +DONEPEZIL HCL5 M2; +PREG150 PO; +TOLT4 PO; +WARF6 PO
[2024-08-13] MEDS ORDERED: FURO40 PO (06:51)
[2024-08-13] MEDS ORDERED: METTREX2.5 (06:52)
[2024-08-13] MEDS ORDERED: FentaNYL Citrate 50 MCG/ML 2 ML Injection ONE (07:10)
[2024-08-13] MEDS ORDERED: Midazolam HCl 1MG / ML 2ML Vial ONE (07:10)
[2024-08-13] MEDS ORDERED: Heparin Sodium 1000 Units/ML 10ML MDV ONE (07:10)
[2024-08-13] MEDS ORDERED: NS 1,000 ML IV ONE ×2 (07:11→07:23)
[2024-08-13] MEDS ORDERED: NS 250 ML IV ONE (07:22)
[2024-08-13] MEDS ORDERED: NS 100 ML IV ONE (07:22)
[2024-08-13] MEDS ORDERED: Nitroglycerin 2 MG/20 ML BTL ONE (07:23)
[2024-08-13] MEDS ORDERED: Clopidogrel Bisulfate 300 MG Cap ONE (09:06)
--- NOTE | 2024-08-13 09:29 | NUR ---
PT BACK TO RECOVERY ROOM, ALERT AND ORIENTED, BY DROWSY. VSS.
[2024-08-13] MEDS ORDERED: CLOP75 PO (09:53)
--- NOTE | 2024-08-13 10:00 | NUR ---
PT MEDICATED WITH HYDRALAZINE 10MG SLOW IVP FOR BP. ETHNOARCHAEOLOGY PROFESSOR IN PLACE.
[2024-08-13] MEDS ORDERED: HydrALAZINE HCl 20 MG / ML 1ML Vial ONE (10:05)
[2024-08-13] MEDS ORDERED: HYDROcodone 5-APAP 325 TAB ONE (11:06)
[2024-08-13] MEDS ORDERED: HYDROcodone 5-APAP 325 TAB PO ONE (11:10)
--- NOTE | 2024-08-13 11:14 | NUR ---
PT SITTING UP AT 30 DEGRESS. PT C/O 07/[address] SOLIS IN TO SEE AND UPDATE PT. PT MEDICATED WITH NORCO SHE NORMALLY TAKES TID.
--- NOTE | 2024-08-13 12:16 | NUR ---
PT DRESSED AND UP TO BR. DRESSING CLEAN DRY INTACT, NO HEMATOMA OR BLEEDING. PT VERBALIZE D/C INSTRUCTIONS. IV D/C CATHETER INTACT. PT WHEELED OUT TO FAMILY'S CAR.
--- NOTE | 2024-08-13 12:43 | NUR ---
PT DRESSED, IV D/C CATHETER INTACT. PT WHEELED OUT TO [employer] FOR RIDE HOME.
== END 2024-08-13 12:31 | disposition home or self-care (01) ==
LOC: MHTC 06:30
DX: I70.223 Atherosclerosis of native arteries of extremities with rest pain, bilateral legs (principal); I10 Essential (primary) hypertension; J44.9 Chronic obstructive pulmonary disease, unspecified; E78.5 Hyperlipidemia, unspecified; F17.210 Nicotine dependence, cigarettes, uncomplicated; Z79.01 Long term (current) use of anticoagulants; Z79.899 Other long term (current) drug therapy; Z88.2 Allergy status to sulfonamides; Z88.5 Allergy status to narcotic agent
CPT/HCPCS: 37225; 37252; 75710; 76937; 85347; 99152; 99153; A9270; C1714; C1753; C1760; C1769; C1884; C1887; C1894; C2623; J0360; J1644; J2250; J3010; J7030; J7050; Q9967

== ENCOUNTER 2024-12-25 16:10 | Emergency (ER) | payer MEDICARE ==
[~2024-12-25] VITALS: Ht 154.9 cm; Wt 54.4 kg
[~2024-12-25 16:10] MED LIST changes: +CLOP75 PO; +FURO40 PO; +METTREX2.5
[2024-12-25 17:34] LABS: BASOPHILS ABSOLUTE AUTO 0.06 K/mm3 (0.00-0.23); BASOPHILS PERCENT AUTO 1 % (0-2); EOSINOPHILS PERCENT AUTO 5 % (0-6); Hematocrit 41.4 % (33.0-51.0); Hemoglobin 13.1 g/dL (11.5-16.0); IMMATURE GRAN ABSOLUTE AUTO 0.02 K/mm3 (0.00-0.10); IMMATURE GRAN PERCENT AUTO 0 % (0-1); LYMPHOCYTES ABSOLUTE AUTO 0.86 K/mm3 (0.84-5.20); LYMPHOCYTES PERCENT AUTO 15 % (21-46); MONOCYTES ABSOLUTE AUTO 0.55 K/mm3 (0.16-1.47); MONOCYTES PERCENT AUTO 10 % (4-13); Mean Corpuscular HGB 32.5 pg (26.0-34.0); Mean Corpuscular HGB Conc 31.6 g/dL (31.5-36.5); Mean Corpuscular Volume 103 fL (80-100); Mean Platelet Volume 9.6 fL (9.1-12.4); NEUTROPHILS ABSOLUTE AUTO 3.93 K/mm3 (1.96-9.15); NEUTROPHILS PERCENT AUTO 69 % (41-73); Platelet Count 205 K/mm3 (150-400); RDW Coefficient Variation 12.7 % (11.7-14.2); RDW Standard Deviation 47.8 fL (35.1-46.3); Red Blood Cell Count 4.03 M/mm3 (3.80-5.20); White Blood Cell Count 5.72 K/mm3 (4.00-11.30)
[2024-12-25 17:54] LABS: Albumin/Globulin Ratio 1.1 (0.8-1.8); Bilirubin, Total 0.2 mg/dL (0.1-1.0); Bun/Creatinine Ratio 15.3 (12.0-20.0); Calcium, Blood 9.3 mg/dL (8.5-10.1); Creatinine, Blood 0.98 mg/dL (0.40-1.00); Globulin, Blood 3.6 g/dL (2.2-4.0); Potassium, Blood 3.8 mmol/L (3.5-5.5); Total Protein, Blood 7.6 g/dL (6.4-8.2)
[2024-12-25 18:30] VITALS: BP 143/67
[2024-12-25 18:31] LABS: International Normalized Ratio 2.5
== END 2024-12-25 18:30 | disposition home or self-care (01) ==
LOC: ER 16:10
PROVIDERS: Student in an Organized Health Care Education/Training Program
DX: S09.90XA Unspecified injury of head, initial encounter (principal); M54.2 Cervicalgia; I10 Essential (primary) hypertension; G47.33 Obstructive sleep apnea (adult) (pediatric); F17.210 Nicotine dependence, cigarettes, uncomplicated; Z86.718 Personal history of other venous thrombosis and embolism; Z88.5 Allergy status to narcotic agent; Z88.2 Allergy status to sulfonamides; Z79.01 Long term (current) use of anticoagulants; Z79.899 Other long term (current) drug therapy; W18.30XA Fall on same level, unspecified, initial encounter
CPT/HCPCS: 70450; 72125; 80053; 85025; 85610; 93005; 93010; 99284-25

== ENCOUNTER 2025-04-05 12:36 | Emergency (ER) | payer MEDICARE ==
[~2025-04-05] VITALS: Ht 154.9 cm; Wt 54.4 kg
[2025-04-05 13:31] LABS: International Normalized Ratio 1.12; Prothrombin Time Results 11.9 Sec (9.7-11.5)
[2025-04-05 15:03] VITALS: BP 153/60
== END 2025-04-05 15:39 | disposition home or self-care (01) ==
LOC: ER 12:36
PROVIDERS: Physician Assistant
DX: S09.90XA Unspecified injury of head, initial encounter (principal); M25.551 Pain in right hip; W19.XXXA Unspecified fall, initial encounter; I10 Essential (primary) hypertension; G47.33 Obstructive sleep apnea (adult) (pediatric); F17.210 Nicotine dependence, cigarettes, uncomplicated; Z88.5 Allergy status to narcotic agent; Z88.2 Allergy status to sulfonamides; Z79.01 Long term (current) use of anticoagulants; Z79.899 Other long term (current) drug therapy
CPT/HCPCS: 36415; 70450; 73502; 85610; 99284-25

== ENCOUNTER 2025-07-22 21:53 | Emergency (ER) | payer MEDICARE ==
[~2025-07-22] VITALS: Ht 154.9 cm; Wt 63.5 kg
[2025-07-22 23:04] VITALS: BP 161/62
[2025-07-22] MEDS ORDERED: ACET500 PO (23:55)
== END 2025-07-23 00:15 | disposition home or self-care (01) ==
LOC: ER 21:53
DX: M25.561 Pain in right knee (principal); I10 Essential (primary) hypertension; G47.33 Obstructive sleep apnea (adult) (pediatric); F17.210 Nicotine dependence, cigarettes, uncomplicated; Z88.5 Allergy status to narcotic agent; Z88.2 Allergy status to sulfonamides; Z79.01 Long term (current) use of anticoagulants; Z79.899 Other long term (current) drug therapy
CPT/HCPCS: 73562-RT; 99283-25; A9270

== ENCOUNTER 2025-10-25 21:28 | Inpatient (IN) | payer MEDICARE ==
[~2025-10-25] VITALS: Ht 162.6 cm; Wt 59.0 kg
[~2025-10-25 21:28] MED LIST changes: +ACET500 PO; -ATOR80 PO; +HYDROCODONE-AC473 ML PO; +LIPITOR80 MG PO; -Norco 5-325 Ta1 EACH PO
[2025-10-25] MEDS ORDERED: Pantoprazole Sodium 40 MG Injection IV ONE (21:40)
[2025-10-25] MEDS ORDERED: Haloperidol Lactate Inj. 5 MG/ML Injection IV ONE (21:40)
[2025-10-25] MEDS ORDERED: NS 1,000 ML IV SCH ×2 (21:40→23:30)
[2025-10-25] MEDS ORDERED: CefTRIAXone Sodium 2,000 MG in NS 100 ML IV ONE (21:45)
[2025-10-25 21:53] LABS: BASOPHILS ABSOLUTE AUTO 0.03 K/mm3 (0.00-0.23); BASOPHILS PERCENT AUTO 0 % (0-2); EOSINOPHILS ABSOLUTE AUTO 0.00 K/mm3 (0.00-0.68); EOSINOPHILS PERCENT AUTO 0 % (0-6); Hematocrit 41.4 % (33.0-51.0); Hemoglobin 13.7 g/dL (11.5-16.0); IMMATURE GRAN ABSOLUTE AUTO 0.12 K/mm3 (0.00-0.10); IMMATURE GRAN PERCENT AUTO 1 % (0-1); LYMPHOCYTES ABSOLUTE AUTO 0.89 K/mm3 (0.84-5.20); LYMPHOCYTES PERCENT AUTO 5 % (21-46); MONOCYTES ABSOLUTE AUTO 0.90 K/mm3 (0.16-1.47); MONOCYTES PERCENT AUTO 5 % (4-13); Mean Corpuscular HGB Conc 33.1 g/dL (31.5-36.5); Mean Corpuscular Volume 102 fL (80-100); NEUTROPHILS ABSOLUTE AUTO 15.97 K/mm3 (1.96-9.15); NEUTROPHILS PERCENT AUTO 89 % (41-73); NRBC ABSOLUTE 0.02 K/mm3 (0.00-0.02); NRBC Auto 0.1 /100 WBC (0.0-0.2); Platelet Count 312 K/mm3 (150-400); RDW Coefficient Variation 14.2 % (11.7-14.2); RDW Standard Deviation 52.7 fL (35.1-46.3)
[2025-10-25 22:11] LABS: Alanine Aminotransfer (ALT/SGP 46.0 U/L (12-78); Albumin, Blood 3.4 g/dL (3.4-5.0); Albumin/Globulin Ratio 0.9 (0.8-1.8); Anion Gap 17.0 mmol/L (3-11); Aspartate Aminotrans (AST/SGOT 25.0 U/L (12-37); Bilirubin, Direct 0.1 mg/dL (0.0-0.3); Bilirubin, Indirect 0.3 mg/dL (0.1-0.7); Bilirubin, Total 0.4 mg/dL (0.1-1.0); Blood Urea Nitrogen 56.0 mg/dL (8-24); CO2, Blood 19.0 mmol/L (21-32); Calcium, Blood 10.0 mg/dL (8.5-10.1); Chloride, Blood 105.0 mmol/L (98-108); Creatinine, Blood 1.51 mg/dL (0.40-1.00); Globulin, Blood 3.8 g/dL (2.2-4.0); Glucose, Blood 289.0 mg/dL (70-99); Potassium, Blood 4.2 mmol/L (3.5-5.5); Sodium, Blood 137.0 mmol/L (136-145); Total Protein, Blood 7.2 g/dL (6.4-8.2)
[2025-10-25 22:35] LABS: Source, Urine Foley catheter
[2025-10-25 22:41] LABS: Bilirubin, Urine Neg (Neg); Glucose Qualitative, Urine 1+ (Neg); Ketones, Urine 4+ (Neg); Leukocyte Esterase, Urine Neg (Neg); Protein, Urine 3+ (Neg); Specific Gravity, Urine 1.020 (1.003-1.022); Urobilinogen, Urine NORM (Normal)
[2025-10-25 22:48] LABS: pH Blood Venous 7.28 (7.34-7.37)
[2025-10-25 22:54] LABS: Color, Urine Pale Yellow (P-Yellow)
[2025-10-25 22:56] LABS: Red Blood Cells, Urine 0-2 /hpf (0-2); White Blood Cells, Urine 0-2 /hpf (0-5)
[2025-10-26] VITALS (12 sets, daily range): BP systolic 106–157; BP diastolic 49–92
[2025-10-26 00:10] LABS: U Amphetamine Screen Not Detected; U Barbiturate Screen Not Detected; U Benzodiazapine Screen Not Detected; U Buprenorphine Screen Not Detected; U Cannabinoids Screen Not Detected; U Cocaine Screen Not Detected; U Methadone Screen Not Detected; U Methamphetamine Screen Not Detected; U Opiates Screen DETECTED; U Oxycodone Screen Not Detected; U Phencyclidine Screen Not Detected
[2025-10-26 00:17] LABS: Prothrombin Time Results 11.9 Sec (9.7-11.5)
[2025-10-26] MEDS ORDERED: Ondansetron HCl 2 MG / ML 2ML Vial IV PRN (00:25)
[2025-10-26] MEDS ORDERED: FLU VACC TS2025(65UP)/MF59C/PF 45 MCG/0.5 ML SYRINGE IM SCH (00:25)
[2025-10-26] MEDS ORDERED: XARELTO20 MG PO ×2 (01:50→15:32)
[2025-10-26] MEDS ORDERED: Haloperidol Lactate Inj. 5 MG/ML Injection ONE (03:10)
[2025-10-26] MEDS ORDERED: Haloperidol Lactate Inj. 5 MG/ML Injection IV ONE (03:10)
--- NOTE | 2025-10-26 03:10 | NUR ---
PHYSICIAN COMMUNICATION THIS RN ATTEMPTING TO PLACE A SECOND LINE FOR IV FLUIDS AND PATIENT IS MOVING AROUND TOO MUCH, NOT REDIRECTABLE, TO BE ABLE TO THREAD THE CATHETER. NOTIFIED DR HARVEY AND INFORMED HIM THAT THE PATIENT HAD RECEIVED HALDOL IN THE ER WITH EFFECTIVE SEDATION. DR HARVEY APPROVED THE SAME DOSE IV HALDOL A ONE TIME ORDER.
[2025-10-26 03:19] LABS: pH Blood Venous 7.27 (7.34-7.37)
[2025-10-26 03:21] LABS: BASOPHILS ABSOLUTE AUTO 0.02 K/mm3 (0.00-0.23); BASOPHILS PERCENT AUTO 0 % (0-2); EOSINOPHILS ABSOLUTE AUTO 0.01 K/mm3 (0.00-0.68); EOSINOPHILS PERCENT AUTO 0 % (0-6); Hematocrit 30.1 % (33.0-51.0); Hemoglobin 9.8 g/dL (11.5-16.0); IMMATURE GRAN ABSOLUTE AUTO 0.14 K/mm3 (0.00-0.10); IMMATURE GRAN PERCENT AUTO 1 % (0-1); LYMPHOCYTES ABSOLUTE AUTO 0.85 K/mm3 (0.84-5.20); LYMPHOCYTES PERCENT AUTO 4 % (21-46); MONOCYTES ABSOLUTE AUTO 1.52 K/mm3 (0.16-1.47); MONOCYTES PERCENT AUTO 7 % (4-13); Mean Corpuscular HGB Conc 32.6 g/dL (31.5-36.5); Mean Corpuscular Volume 104 fL (80-100); NEUTROPHILS ABSOLUTE AUTO 19.14 K/mm3 (1.96-9.15); NEUTROPHILS PERCENT AUTO 88 % (41-73); NRBC ABSOLUTE 0.00 K/mm3 (0.00-0.02); NRBC Auto 0.0 /100 WBC (0.0-0.2); Platelet Count 257 K/mm3 (150-400); RDW Coefficient Variation 14.5 % (11.7-14.2); RDW Standard Deviation 54.4 fL (35.1-46.3)
[2025-10-26] MEDS ORDERED: Sodium Bicarb 8.4% 1 MEQ/ML 50 ML Vial IV ONE (03:30)
[2025-10-26] MEDS ORDERED: Sodium Bicarb 8.4% Inj 150 MEQ in Dextrose 5% 1,000 ML IV SCH (03:35)
[2025-10-26 04:40] LABS: Magnesium, Blood 1.8 mg/dL (1.6-2.4)
[2025-10-26 04:44] LABS: Alanine Aminotransfer (ALT/SGP 38 U/L (12-78); Albumin, Blood 2.5 g/dL (3.4-5.0); Albumin/Globulin Ratio 0.9 (0.8-1.8); Anion Gap 14 mmol/L (3-11); Aspartate Aminotrans (AST/SGOT 25 U/L (12-37); Bilirubin, Total 0.2 mg/dL (0.1-1.0); Blood Urea Nitrogen 62 mg/dL (8-24); CO2, Blood 15 mmol/L (21-32); Calcium, Blood 8.0 mg/dL (8.5-10.1); Chloride, Blood 119 mmol/L (98-108); Creatinine, Blood 1.19 mg/dL (0.40-1.00); Globulin, Blood 2.8 g/dL (2.2-4.0); Glucose, Blood 239 mg/dL (70-99); Potassium, Blood 4.0 mmol/L (3.5-5.5); Sodium, Blood 144 mmol/L (136-145); Total Protein, Blood 5.3 g/dL (6.4-8.2)
[2025-10-26 05:41] LABS: Hematocrit 26.4 % (33.0-51.0); Hemoglobin 8.9 g/dL (11.5-16.0)
[2025-10-26] MEDS ORDERED: Insulin Regular 100 UNIT/ML 10ML Vial SC SCH (06:00)
--- NOTE | 2025-10-26 06:17 | NUR ---
SHIFT SUMMARY PATIENT ARRIVED TO PCU 20 VIA STRETCHER. PATIENT ALERT AND ORIENTED TO SELF AND FAMILY. PATIENT IS OTHERWISE COFUSED AND HAS DIFFICULTY FOLLOWING DIRECTIONS. PATIENT IS TACHYPNIC, ON ROOM AIR WITH SPO2 >90%. BLOOD PRESSURE STABLE, TACHYCARDIC IN THE 130'S-140'S, MD AWARE. PATIENT'S HEMEGLOBIN ALSO DROPPED FROM 13.[address] HAREVY NOTIFIED. WILL CONTINUE TO MONITOR. CALL LIGHT WITHIN REACH.
[2025-10-26 10:25] LABS: Hematocrit 24.6 % (33.0-51.0); Hemoglobin 8.5 g/dL (11.5-16.0)
--- NOTE | 2025-10-26 10:57 | NUR ---
Nursing PCU Dayshift Assumed care at 0700. Lethargic, responds to physical stimuli only, unable to follow commands. Pupils equal and reactive. Equal movement of all extremities. Skin is pale, fragile, redness to folds, no breakdown noted. Appears to be resting comfortably. ST 130S, SBP 150s, no noted edema. LS CTA w/ dim bases, satting at 100% on RA. ABD soft, BT+. Incontinent of urine, attends in place. PIVx1 w/ protonix gtt infusing, PG to SEAN w/ bicarb infusing at 150 mLs/hr per DO. No s/s of acute distress. 1:1 patient sitter at bedside for pt safety and line management. Seen by GI, plan for EGD early this afternoon. Awaiting rounding from PMD. Son currently at bedside, plan of care discussed, agreeable to current plan. Continue to monitor.
--- NOTE | 2025-10-26 10:57 | NUR ---
Nursing PCU Dayshift Assumed care at 0700. Lethargic, responds to physical stimuli only, unable to follow commands. Pupils equal and reactive. Equal movement of all extremities. Skin is pale, fragile, redness to folds, no breakdown noted. Appears to be resting comfortably. ST 130S, SBP 150s, no noted edema. LS CTA w/ dim bases, satting at 100% on RA. ABD soft, BT+. FC with stat lock in place and draining clear yellow urine to gravity. PIVx1 w/ protonix gtt infusing, PG to SEAN w/ bicarb infusing at 150 mLs/hr per DO. No s/s of acute distress. 1:1 patient sitter at bedside for pt safety and line management. Seen by GI, plan for EGD early this afternoon. Awaiting rounding from PMD. Son currently at bedside, plan of care discussed, agreeable to current plan. Continue to monitor. =
[2025-10-26] MEDS ORDERED: HYDROmorphone HCl/Pf 1MG SYR IV PRN (11:35)
[2025-10-26 12:09] LABS: Influenza A, PCR NEGATIVE (NEGATIVE); Influenza B, PCR NEGATIVE (NEGATIVE); Resp Syncytial Virus, PCR NEGATIVE (NEGATIVE); SARS-Cov-2 (COVID-19) PCR, MMC NEGATIVE (NEGATIVE)
[2025-10-26] MEDS ORDERED: NS 500 ML IV SCH (13:50)
[2025-10-26] MEDS ORDERED: DONE5 PO (14:00)
[2025-10-26] MEDS ORDERED: TORS10 PO (14:02)
[2025-10-26] MEDS ORDERED: PANT40 PO (14:03)
[2025-10-26] MEDS ORDERED: Metoprolol Tartrate 5 ML IV ONE (14:03)
[2025-10-26] MEDS ORDERED: POTA10T PO (14:04)
[2025-10-26] MEDS ORDERED: WARF5 PO (14:06)
--- NOTE | 2025-10-26 14:13 | NUR ---
PT SLEEPY BUT AROUSABLE TO NAME, NO VERBAL. POA WILL BE CALLED FOR CONSENT FOR PROCEDURE.
--- NOTE | 2025-10-26 14:54 | NUR ---
10/26/25 1454 Anivla Lal MONITOR INTACT WITH CONTINUOUS PULSE OXIMETRY, CONTINUOUS END TITAL CO2, 3-LEAD EKG AND INTERMITTENT BLOOD PRESSURE. 3-LEAD EKG REVIEWED WITH PHYSICIAN PRIOR TO START OF PROCEDURE.O2 VIA POM INTACT THROUGHOUT SEDATION/PROCEDURE. Bite Block Placed AT START OF PROCEDURE. TELE MONITOR REMAINS IN PLACE DURING PROCEDURE.
[2025-10-26] MEDS ORDERED: Albuterol 2.5 MG/3 ML VIAL INH PRN (16:20)
[2025-10-26] MEDS ORDERED: Pantoprazole Sodium 40 MG Injection IV SCH (16:30)
--- NOTE | 2025-10-26 16:52 | NUR ---
NEW POLST COMPLETED TO REFLECT DNR/SELCTIVE MEDICAL INTERVENTIONS. JOINT VISIT WITH PROVIDER. SON AND BROTHER AT BEDSIDE. SON IS LISTED ON ADVANCE DIRECTIVE MEDICAL POA. AFTER REVIEWING PT'S CURRENT HEALTH STATUS AND THE LAST FEW MONTHS, SON ELECTED FOR DNR. CONTINUE WITH TX. VERBAL ORDER RCV'D FOR DNR. ORDER PLACED ACCORDINGLY. SIGNED POLST. ORIGINAL POLST RETURNED TO SON. COPIES SENT TO MEDICAL RECORDS, [place] [facility] AND [facility] MEDICAL RECORDS.
--- NOTE | 2025-10-26 17:09 | NUR ---
DAYSHIFT SUMMARY NO SIGNIFICANT CHANGES T/O SHIFT. TO DAY SURGERY FOR EGD, RETURNED TO PCU 20 AT ABOUT 1515. GI AT BEDSIDE TO DISCUSS RESULTS WITH SON. PMD MET WITH SON AND BROTHER TO DISCUSS UPDATED PLAN OF CARE, MED CHANGES, AND CODE SATUS. PT CHANGED TO DNR. IV FLUIDS DCd. HOME MEDS REVIEWED AND ORDERED. SITTER REMAINS AT BEDSIDE, PT RESTING COMFORTABLY, CONTINUING TO MONITOR UNTIL REPORT GIVEN TO MAX WARNER.
[2025-10-26] MEDS ORDERED: Miconazole Nitrate 2% 85 GM PWD TOP SCH (21:00)
[2025-10-27] VITALS (7 sets, daily range): BP systolic 144–161; BP diastolic 52–61
[2025-10-27 05:39] LABS: BASOPHILS ABSOLUTE AUTO 0.03 K/mm3 (0.00-0.23); BASOPHILS PERCENT AUTO 0 % (0-2); EOSINOPHILS ABSOLUTE AUTO 0.01 K/mm3 (0.00-0.68); EOSINOPHILS PERCENT AUTO 0 % (0-6); Hematocrit 23.7 % (33.0-51.0); Hemoglobin 7.9 g/dL (11.5-16.0); IMMATURE GRAN ABSOLUTE AUTO 0.10 K/mm3 (0.00-0.10); IMMATURE GRAN PERCENT AUTO 1 % (0-1); LYMPHOCYTES ABSOLUTE AUTO 0.81 K/mm3 (0.84-5.20); LYMPHOCYTES PERCENT AUTO 5 % (21-46); MONOCYTES ABSOLUTE AUTO 1.22 K/mm3 (0.16-1.47); MONOCYTES PERCENT AUTO 8 % (4-13); Mean Corpuscular HGB Conc 33.3 g/dL (31.5-36.5); Mean Corpuscular Volume 103 fL (80-100); NEUTROPHILS ABSOLUTE AUTO 13.60 K/mm3 (1.96-9.15); NEUTROPHILS PERCENT AUTO 86 % (41-73); NRBC ABSOLUTE 0.00 K/mm3 (0.00-0.02); NRBC Auto 0.0 /100 WBC (0.0-0.2); Platelet Count 189 K/mm3 (150-400); RDW Coefficient Variation 15.4 % (11.7-14.2); RDW Standard Deviation 55.8 fL (35.1-46.3)
[2025-10-27 06:24] LABS: Alanine Aminotransfer (ALT/SGP 40.0 U/L (12-78); Albumin, Blood 2.5 g/dL (3.4-5.0); Albumin/Globulin Ratio 0.9 (0.8-1.8); Anion Gap 7.0 mmol/L (3-11); Aspartate Aminotrans (AST/SGOT 36.0 U/L (12-37); Bilirubin, Total 0.3 mg/dL (0.1-1.0); Blood Urea Nitrogen 36.0 mg/dL (8-24); CO2, Blood 24.0 mmol/L (21-32); Calcium, Blood 8.8 mg/dL (8.5-10.1); Chloride, Blood 127.0 mmol/L (98-108); Creatinine, Blood 0.74 mg/dL (0.40-1.00); Globulin, Blood 2.7 g/dL (2.2-4.0); Glucose, Blood 161.0 mg/dL (70-99); Potassium, Blood 2.6 mmol/L (3.5-5.5); Sodium, Blood 155.0 mmol/L (136-145); Total Protein, Blood 5.2 g/dL (6.4-8.2)
--- NOTE | 2025-10-27 06:52 | NUR ---
SHIFT SUMMARY PATIENT CONTINUES TO BE CONFUSED AND NOT ANSWERING ORIENTATION QUESTION. PATIENT SLEPT WELL OVERNIGHT AND WAS MEDICATED ONCE PER EMAR FOR PAIN. VITAL SIGNS STABLE, ON ROOM AIR. WILL CONTINUE TO MONITOR. CALL LIGHT WITHIN REACH. SITTER AT BEDSIDE.
[2025-10-27] MEDS ORDERED: Potassium Chloride 10 Meq Tablet SA PO SCH (09:00)
[2025-10-27] MEDS ORDERED: Potassium Chl 20MEQ/Water100ML 100 ML IV SCH (11:00)
[2025-10-27] MEDS ORDERED: NS 250 ML IV PRN (11:35)
--- NOTE | 2025-10-27 18:31 | NUR ---
End of Shift Pt wakes to verbal stimulation w/ touch. Pt unable to remain awake for long. Pt does not answer questions or follow simple commands. Pt briefly alert this afternoon, able to state "hey" & smile when this nurse greeted pt. Pt then w/ no further verbal communication. Unable to assess orientation. Pt intermittently restless & grimacing when awake, medicated w/ PRN pain medication per eMAR w/ signs of improvement. Pt VSS. Spo2 > 92% on RA. Monitor showing ST, HR 100-120s. Harris cath patent & draining clear yellow urine. Pt w/ multiple IV infiltrations this shift w/ difficulty placing new lines. IV KCl infusing slowly t/o shift per orders & 1 unit pRBCs infused this shift. Pt son at bedside this morning/afternoon. 1:1 sitter in rm d/t pt impulsivity when awake. PO medications held this shift d/t pt inability to remain awake & safely attempt PO intake.
[2025-10-27 20:35] LABS: Stool Occult Blood Guaiac 1 Neg (Neg)
[2025-10-27 21:39] LABS: Anion Gap 8.0 mmol/L (3-11); Blood Urea Nitrogen 21.0 mg/dL (8-24); CO2, Blood 24.0 mmol/L (21-32); Calcium, Blood 8.6 mg/dL (8.5-10.1); Chloride, Blood 128.0 mmol/L (98-108); Creatinine, Blood 0.7 mg/dL (0.40-1.00); Glucose, Blood 151.0 mg/dL (70-99); Potassium, Blood 3.5 mmol/L (3.5-5.5); Sodium, Blood 156.0 mmol/L (136-145)
[2025-10-27 23:00] LABS: Hematocrit 24.0 % (33.0-51.0); Hemoglobin 7.9 g/dL (11.5-16.0)
[2025-10-28] VITALS (14 sets, daily range): BP systolic 127–171; BP diastolic 47–89
[2025-10-28 04:25] LABS: BASOPHILS ABSOLUTE AUTO 0.03 K/mm3 (0.00-0.23); BASOPHILS PERCENT AUTO 0 % (0-2); EOSINOPHILS ABSOLUTE AUTO 0.01 K/mm3 (0.00-0.68); EOSINOPHILS PERCENT AUTO 0 % (0-6); Hematocrit 22.4 % (33.0-51.0); Hemoglobin 7.5 g/dL (11.5-16.0); IMMATURE GRAN ABSOLUTE AUTO 0.21 K/mm3 (0.00-0.10); IMMATURE GRAN PERCENT AUTO 2 % (0-1); LYMPHOCYTES ABSOLUTE AUTO 0.80 K/mm3 (0.84-5.20); LYMPHOCYTES PERCENT AUTO 8 % (21-46); MONOCYTES ABSOLUTE AUTO 0.97 K/mm3 (0.16-1.47); MONOCYTES PERCENT AUTO 9 % (4-13); Mean Corpuscular HGB Conc 33.5 g/dL (31.5-36.5); NEUTROPHILS ABSOLUTE AUTO 8.57 K/mm3 (1.96-9.15); NEUTROPHILS PERCENT AUTO 81 % (41-73); NRBC ABSOLUTE 0.22 K/mm3 (0.00-0.02); NRBC Auto 2.1 /100 WBC (0.0-0.2); Platelet Count 149 K/mm3 (150-400); RDW Coefficient Variation 19.9 % (11.7-14.2); RDW Standard Deviation 70.4 fL (35.1-46.3)
[2025-10-28 04:26] LABS: Mean Corpuscular Volume 98 fL (80-100)
[2025-10-28 04:48] LABS: Alanine Aminotransfer (ALT/SGP 45.0 U/L (12-78); Albumin, Blood 2.5 g/dL (3.4-5.0); Albumin/Globulin Ratio 1.0 (0.8-1.8); Anion Gap 6.0 mmol/L (3-11); Aspartate Aminotrans (AST/SGOT 37.0 U/L (12-37); Bilirubin, Total 0.4 mg/dL (0.1-1.0); Blood Urea Nitrogen 16.0 mg/dL (8-24); CO2, Blood 25.0 mmol/L (21-32); Calcium, Blood 8.4 mg/dL (8.5-10.1); Chloride, Blood 130.0 mmol/L (98-108); Creatinine, Blood 0.67 mg/dL (0.40-1.00); Globulin, Blood 2.6 g/dL (2.2-4.0); Glucose, Blood 134.0 mg/dL (70-99); Potassium, Blood 3.3 mmol/L (3.5-5.5); Sodium, Blood 158.0 mmol/L (136-145); Total Protein, Blood 5.1 g/dL (6.4-8.2)
[2025-10-28] MEDS ORDERED: Potassium Chl 20MEQ/Water100ML 100 ML IV STA (06:06)
--- NOTE | 2025-10-28 07:06 | NUR ---
SHIFT SUMMARY PATIENT CONTINUES TO BE ESSENTIALLY NONVERBAL, PLEASANTLY CONFUSED. NOTIFIED CONTACT WORKER RESIDENT OVERNIGHT OF PATIENT'S INCREASING SODIUM LEVELS, HE INITIALLY ORDERED LR AT 100 ML/HR, INCREASED IT AFTER REPEAT LAB DRAW. PATIENT MEDICATED PER EMAR FOR PAIN. ON ROOM AIR WITH SPO2 >90%. VITAL SIGNS STABLE. WILL CONTINUE TO MONITOR. CALL LIGHT WITHIN REACH.
[2025-10-28] MEDS ORDERED: Ketorolac Tromethamine 15mg Vial IV PRN (11:45)
[2025-10-28] MEDS ORDERED: TPN Consult Notification XX ONE (13:00)
[2025-10-28 14:19] LABS: pH Blood Venous 7.57 (7.34-7.37)
--- NOTE | 2025-10-28 16:39 | NUR ---
SHIFT SUMMARY PATIENT IS RESPONSIVE TO VERBAL STIMULI, LETHARGIC THIS SHIFT, UNABLE TO FOLLOW COMMANDS OR MAKE NEEDS KNOWN. TELE IN PLACE, SR 80'S-90'S, INTERMITTENT UNSUSTAINED EPISODES OF SVT, PATIENT ASYMPTOMATIC. SPO2 >90% ON RA, SHALLOW RESPIRATIONS. ABDOMEN IS MILDLY DISTENDED, SOFT TO PALPATION, NO EPISODES OF EMESIS THIS SHIFT. CARPENTER INTACT, PATENT, AND DRAINING PALE YELLOW URINE TO GRAVITY. PATIENT RECEIVED PRBCs THIS SHIFT DUE TO DECREASED HEMOGLOBIN. PATIENT REMAINS NPO. PATIENT HAS EXHIBITED MODERATE DISCOMFORT FREQUENTLY THROUGHOUT SHIFT, MEDICATED PER EMAR AND NONPHARMACOLOGICAL INTERVENTIONS. PATIENT UNABLE TO PARTICIPATE IN REPOSITIONS AND INTERMITENTL IMPULSIVE. PATIENT IS LYING IN BED, BED IN LOWEST POSITION, BED ALARM SET, SITTER AT BEDSIDE.
[2025-10-28] MEDS ORDERED: Parenteral Electolytes 40 ML,Potassium Phosphate Dibasic 30 MM,Multivitamins 10 ML,ZINC... IV SCH (17:00)
[2025-10-29 00:53] VITALS: BP 176/57
[2025-10-29 03:00] VITALS: BP 160/149
[2025-10-29 03:56] LABS: BASOPHILS ABSOLUTE AUTO 0.11 K/mm3 (0.00-0.23); BASOPHILS PERCENT AUTO 1 % (0-2); EOSINOPHILS ABSOLUTE AUTO 0.15 K/mm3 (0.00-0.68); EOSINOPHILS PERCENT AUTO 1 % (0-6); Hematocrit 35.6 % (33.0-51.0); Hemoglobin 11.5 g/dL (11.5-16.0); IMMATURE GRAN ABSOLUTE AUTO 0.31 K/mm3 (0.00-0.10); IMMATURE GRAN PERCENT AUTO 3 % (0-1); LYMPHOCYTES ABSOLUTE AUTO 1.35 K/mm3 (0.84-5.20); LYMPHOCYTES PERCENT AUTO 11 % (21-46); MONOCYTES ABSOLUTE AUTO 1.00 K/mm3 (0.16-1.47); MONOCYTES PERCENT AUTO 8 % (4-13); Mean Corpuscular HGB Conc 32.3 g/dL (31.5-36.5); Mean Corpuscular Volume 95 fL (80-100); NEUTROPHILS ABSOLUTE AUTO 9.57 K/mm3 (1.96-9.15); NEUTROPHILS PERCENT AUTO 77 % (41-73); NRBC ABSOLUTE 0.26 K/mm3 (0.00-0.02); NRBC Auto 2.1 /100 WBC (0.0-0.2); Platelet Count 141 K/mm3 (150-400); RDW Coefficient Variation 20.0 % (11.7-14.2); RDW Standard Deviation 67.4 fL (35.1-46.3)
[2025-10-29 04:15] LABS: Alanine Aminotransfer (ALT/SGP 54 U/L (12-78); Albumin, Blood 2.5 g/dL (3.4-5.0); Albumin/Globulin Ratio 0.9 (0.8-1.8); Anion Gap 7 mmol/L (3-11); Aspartate Aminotrans (AST/SGOT 48 U/L (12-37); Bilirubin, Total 0.8 mg/dL (0.1-1.0); Blood Urea Nitrogen 12 mg/dL (8-24); CO2, Blood 29 mmol/L (21-32); Calcium, Blood 8.1 mg/dL (8.5-10.1); Chloride, Blood 117 mmol/L (98-108); Creatinine, Blood 0.69 mg/dL (0.40-1.00); Globulin, Blood 2.9 g/dL (2.2-4.0); Glucose, Blood 139 mg/dL (70-99); Magnesium, Blood 1.9 mg/dL (1.6-2.4); Phosphorus, Blood 1.8 mg/dL (2.5-4.9); Potassium, Blood 3.5 mmol/L (3.5-5.5); Sodium, Blood 149 mmol/L (136-145); Total Protein, Blood 5.4 g/dL (6.4-8.2); Triglycerides 169 mg/dL (30-160)
--- NOTE | 2025-10-29 06:18 | NUR ---
SHIFT SUMMARY ORIENTATION VARIABLE T/O SHIFT. ORIENTED ONLY TO SELF AND PLACE, AT TIMES RESPONDING APPROPRIATELY, OTHER TIMES VERY CONFUSED AND UNCOOPERATIVE WITH CARE. 1:[address] PT FREQUENTLY SITTING UP, ROCKING, AND TRYING TO GET OUT OF BED. USING FLACC SCALE FOR PAIN ASSESSMENT. PT IS VERY RESTLESS, GRIMACING, MOANING, ETC. TREATING PAIN PER EMAR. SHE REMAINS NPO AT THIS TIME UNTIL SPEECH EVAL CAN BE COMPLETED. 2ND UNIT OF PRBC COMPLETED THIS SHIFT. HGB STABILIZED. TWO INCONTINENT BOWEL MOVEMENTS THIS SHIFT. CARPENTER IN PLACE, PATENT, AND DRAINING TO GRAVITY.
[2025-10-29 08:00] VITALS: BP 172/82
[2025-10-29 11:14] VITALS: BP 161/61
[2025-10-29] MEDS ORDERED: Calcium Acetate 667 MG Gel Cap PO ONE (12:40)
[2025-10-29 15:05] LABS: Anion Gap 8.0 mmol/L (3-11); Blood Urea Nitrogen 14.0 mg/dL (8-24); CO2, Blood 32.0 mmol/L (21-32); Calcium, Blood 9.1 mg/dL (8.5-10.1); Chloride, Blood 105.0 mmol/L (98-108); Creatinine, Blood 0.62 mg/dL (0.40-1.00); Glucose, Blood 144.0 mg/dL (70-99); Potassium, Blood 2.9 mmol/L (3.5-5.5); Sodium, Blood 142.0 mmol/L (136-145)
[2025-10-29 16:22] VITALS: BP 150/64
[2025-10-29 20:15] VITALS: BP 141/53
[2025-10-30] VITALS: BP 118/71
[2025-10-30 03:52] VITALS: BP 154/52
[2025-10-30 04:54] LABS: BASOPHILS ABSOLUTE AUTO 0.06 K/mm3 (0.00-0.23); BASOPHILS PERCENT AUTO 1 % (0-2); EOSINOPHILS ABSOLUTE AUTO 0.24 K/mm3 (0.00-0.68); EOSINOPHILS PERCENT AUTO 2 % (0-6); Hematocrit 35.0 % (33.0-51.0); Hemoglobin 11.9 g/dL (11.5-16.0); IMMATURE GRAN ABSOLUTE AUTO 0.23 K/mm3 (0.00-0.10); IMMATURE GRAN PERCENT AUTO 2 % (0-1); LYMPHOCYTES ABSOLUTE AUTO 1.35 K/mm3 (0.84-5.20); LYMPHOCYTES PERCENT AUTO 11 % (21-46); MONOCYTES ABSOLUTE AUTO 1.17 K/mm3 (0.16-1.47); MONOCYTES PERCENT AUTO 10 % (4-13); Mean Corpuscular HGB Conc 34.0 g/dL (31.5-36.5); Mean Corpuscular Volume 93 fL (80-100); NEUTROPHILS ABSOLUTE AUTO 9.03 K/mm3 (1.96-9.15); NEUTROPHILS PERCENT AUTO 75 % (41-73); NRBC ABSOLUTE 0.08 K/mm3 (0.00-0.02); NRBC Auto 0.7 /100 WBC (0.0-0.2); Platelet Count 153 K/mm3 (150-400); RDW Coefficient Variation 19.0 % (11.7-14.2); RDW Standard Deviation 61.4 fL (35.1-46.3)
[2025-10-30 05:29] LABS: Alanine Aminotransfer (ALT/SGP 58.0 U/L (12-78); Albumin, Blood 2.4 g/dL (3.4-5.0); Albumin/Globulin Ratio 0.8 (0.8-1.8); Anion Gap 7.0 mmol/L (3-11); Aspartate Aminotrans (AST/SGOT 48.0 U/L (12-37); Bilirubin, Total 0.4 mg/dL (0.1-1.0); Blood Urea Nitrogen 18.0 mg/dL (8-24); CO2, Blood 29.0 mmol/L (21-32); Calcium, Blood 8.3 mg/dL (8.5-10.1); Chloride, Blood 108.0 mmol/L (98-108); Creatinine, Blood 0.61 mg/dL (0.40-1.00); Globulin, Blood 2.9 g/dL (2.2-4.0); Glucose, Blood 133.0 mg/dL (70-99); Magnesium, Blood 2.2 mg/dL (1.6-2.4); Phosphorus, Blood 3.3 mg/dL (2.5-4.9); Potassium, Blood 3.2 mmol/L (3.5-5.5); Sodium, Blood 141.0 mmol/L (136-145); Total Protein, Blood 5.3 g/dL (6.4-8.2)
--- NOTE | 2025-10-30 05:45 | NUR ---
SHIFT SUMMARY PT ALERT, ONLY ORIENTED TO SELF. CONFUSED ABOUT BEING IN THE HOSPITAL AND BELIEVES SHE IS BEING HELD FOR "DOING SOMETHING WRONG." FREQUENTLY REMINDED THAT SHE HAS DONE NOTHING WRONG AND STAFF IS HERE TO HELP AND CARE FOR HER. 1:[address] OVERNIGHT[address] REFUSED NIGHT MEDS REPEATEDLY UNTIL APPROX 0400 AND REQUESTED PAIN MEDS. TAKEN WELL WITH PUDDING. SHE IS SOMEHWAT REDIRECTABLE, BUT ALSO SOMEWHAT UNCOOPERATIVE WITH CARE. CARPENTER IN PLACE, PATENT, AND DRAINING TO GRAVITY WITH SECUREMENT DEVICE IN PLACE. NO ACUTE EVENTS OVERNIGHT. VSS. REMAINS ON ROOM AIR WITH SATS ABOVE 95%. IN A SINUS RHYTHM, HR IN 80'S. BPS SLIGHTLY ELEVATED, BUT STABLE.
[2025-10-30] MEDS ORDERED: Potassium Chl 20MEQ/Water100ML 100 ML IV SCH (06:45)
[2025-10-30 08:00] VITALS: BP 131/102
[2025-10-30 12:00] VITALS: BP 116/60
[2025-10-30 16:37] VITALS: BP 135/68
--- NOTE | 2025-10-30 18:30 | NUR ---
END OF SHIFT SUMMARY: PT HAS BEEN COOPERATIVE ALL SHIFT. STILL WITH EPISODES OF FORGETFULNESS. PT HAD A LITTLE OF HER MEALS BUT ABLE TO TAKE HER ORAL PILLS. SEEN BY THE DIETITIAN, PPN WAS DISCONTINUED AND ADVISED BY DIETITIAN, TO ENCOURAGE MEALS AND SNACKS. CARPENTER WAS REMOVED ALSO PER PT'S REQUEST. PT AWAITING TRANSFER TO MEDICAL FLOOR. WILL ENDORSE TO NEXT NURSE ON DUTY.
--- NOTE | 2025-10-30 22:06 | NUR ---
REPORT RECEIVED FROM DINH (RN) AND AWAITING PT T/F TO ROOM 353.
--- NOTE | 2025-10-30 22:49 | NUR ---
LATE ENTRY REPORT GIVEN TO ESTHER WARNER PT TRASFERED TO RM 353 VIA WC WITHOUT DIFFICULTY. PT HAS BEEN TALKATIVE AND AMBULATING TO BATHROOM T/O THIS SHIFT. PT HAS URINATED SEVERAL TIMES WITHOUT DIFFICLUTY
[2025-10-30 23:13] VITALS: BP 106/69
--- NOTE | 2025-10-31 06:23 | NUR ---
SHIFT SUMMARY: A&O TO SELF AND PLACE WITH INTERMITTENT CONFUSION AND IMPULSIVITY. GIVEN IV TORODOL FOR GENERALIZED PAIN. DENIED GI DISTRESS. SITTER REQUIRED FOR FREQUENT ATTEMPTS OUT OF BED. PLEASANT AND COOPERATIVE WITH CARE. CONTINENT OF BOWEL AND BLADDER TO BEDSIDE COMMODE OR BATHROOM. AMBULATES 1 PERSON STANDBY ASSIST. MEDS WHOLE c FLUIDS. BED IN LOWEST POSITION. CALL LIGHT WITHIN REACH. REPORT TO ONCOMING NURSE.
[2025-10-31 07:47] VITALS: BP 101/53
[2025-10-31 12:59] LABS: Magnesium, Blood 2.0 mg/dL (1.6-2.4); Phosphorus, Blood 4.9 mg/dL (2.5-4.9)
--- NOTE | 2025-10-31 15:12 | NUR ---
DISCHARGE PT DISCHARGED HOME WITH HH. NO NEW RX. 3 MEDICATIONS DISCONTINUED AND REVIEWED WITH PT AND PT BROTHER. PROVIDER EDUCATED PT SON OVER PHONE PRIOR TO DISCHARGE. PG AND PIV REMOVED, BOTH SITES APPEAR WNL. PT ABLE TO STAND AND AMBULATE INDEPENDENTLY TO WHEELCHAIR AND WHEELED DOWN BY [employer] SUPERVISOR TO VEHICLE OPERATED BY PT BROTHER.
== END 2025-10-31 15:10 | disposition home health service (06) | DRG 380 ==
LOC: ER 21:28 → PCU 10-26 00:20 → MEDS 10-26 00:20 → PCU 10-26 01:27 → MEDS 10-30 22:16
PROVIDERS: Emergency Medicine; Family Medicine; Internal Medicine; ADMIT Student in an Organized Health Care Education/Training Program
PROC: 0DJ08ZZ Inspection of Upper Intestinal Tract, Via Natural or Artificial Opening Endoscopic (ICD-10-PCS; 2025-10-26)
PROC: 3E0336Z Introduction of Nutritional Substance into Peripheral Vein, Percutaneous Approach (ICD-10-PCS; principal; 2025-10-28)
DX: K22.11 Ulcer of esophagus with bleeding (principal); G92.8 Other toxic encephalopathy; N17.9 Acute kidney failure, unspecified; D62 Acute posthemorrhagic anemia; E87.1 Hypo-osmolality and hyponatremia; E44.1 Mild protein-calorie malnutrition; Z66 Do not resuscitate; K21.01 Gastro-esophageal reflux disease with esophagitis, with bleeding; I73.9 Peripheral vascular disease, unspecified; E78.5 Hyperlipidemia, unspecified; J44.9 Chronic obstructive pulmonary disease, unspecified; G47.33 Obstructive sleep apnea (adult) (pediatric); M81.0 Age-related osteoporosis without current pathological fracture; M79.7 Fibromyalgia; G89.29 Other chronic pain; F03.90 Unspecified dementia, unspecified severity, without behavioral disturbance, psychotic disturbance, mood disturbance, and anxiety; F41.9 Anxiety disorder, unspecified; F17.210 Nicotine dependence, cigarettes, uncomplicated; I12.9 Hypertensive chronic kidney disease with stage 1 through stage 4 chronic kidney disease, or unspecified chronic kidney disease; N18.30 Chronic kidney disease, stage 3 unspecified; E87.6 Hypokalemia; I25.10 Atherosclerotic heart disease of native coronary artery without angina pectoris; K44.9 Diaphragmatic hernia without obstruction or gangrene; E21.3 Hyperparathyroidism, unspecified; R73.9 Hyperglycemia, unspecified; K26.9 Duodenal ulcer, unspecified as acute or chronic, without hemorrhage or perforation; Z95.820 Peripheral vascular angioplasty status with implants and grafts; Z79.01 Long term (current) use of anticoagulants; Z79.02 Long term (current) use of antithrombotics/antiplatelets; Z86.718 Personal history of other venous thrombosis and embolism; Z87.11 Personal history of peptic ulcer disease; Z87.19 Personal history of other diseases of the digestive system; Z79.891 Long term (current) use of opiate analgesic; Z90.710 Acquired absence of both cervix and uterus; Z90.49 Acquired absence of other specified parts of digestive tract; Z88.5 Allergy status to narcotic agent; Z88.2 Allergy status to sulfonamides; Z79.899 Other long term (current) drug therapy; Z68.22 Body mass index [BMI] 22.0-22.9, adult
CPT/HCPCS: 36415; 51702; 70450; 71045; 80048; 80053; 80076; 80320; 81001; 82140; 82272; 82607; 82746; 82803; 82947; 83605; 83690; 83735; 84100; 84295; 84478; 84484; 85014; 85018; 85025; 85610; 86850; 86900; 86901; 86923; 87040; 87086; 87637; 92526; 92610; 93005; 93010; 94760; 94762; 96365; 96375; 99285-25; A9270; C1751; J0696; J1171; J1630; J1815; J1885; J1938; J2470; J2704; J3411; J3480; J7030; J7040; J7050; J7070; J7120; P9016